=== PATIENT | male | born 1945 | race Caucasian/White ===

== ENCOUNTER 2016-10-15 10:25 | Inpatient (IN) | payer MEDICARE ==
[2016-10-15] MEDS ORDERED: SODIUM CHLORIDE 0.9% 1,000 ML IV STA (10:38)
--- NOTE | 2016-10-15 10:42 | ED ---
General Adult HPI - General Chief complaint: Syncope Stated complaint: Syncope Time Seen by Provider: 10/15/16 10:34 Source: patient, EMS, RN notes reviewed Mode of arrival: EMS Limitations: no limitations - History of Present Illness Initial comments: Patient is a pleasant 71-year-old male presenting to the emergency department following a syncopal episode. Episode occurred while sitting down at [employer]. Patient did feel somewhat nauseated prior to the episode. Patient was unresponsive for approximately 15 seconds. Patient is symptom-free at this time. Patient did have a syncopal episode several months ago with surgical procedure. No headache or confusion. No chest pain or dyspnea. No abdominal pain. - Related Data Home Medications Medication Instructions Recorded Confirmed Atorvastatin [Lipitor] 20 mg PO DAILY 10/23/15 10/15/16 Cholecalciferol [Vitamin D3] 1,000 unit PO DAILY 10/23/15 10/15/16 Finasteride [Proscar] 5 mg PO DAILY 10/23/15 10/15/16 Levothyroxine Sodium [Synthroid] 50 mcg PO DAILY 10/23/15 10/15/16 Tamsulosin [Flomax] 0.4 mg PO HS 10/23/15 10/15/16 Metoprolol Tartrate [Lopressor] 50 mg PO DAILY 10/15/16 10/15/16 Allergies Allergy/AdvReac Type Severity Reaction Status Date / Time No Known Allergies Allergy Verified 10/15/16 13:06 Review of Systems ROS Statement: Those systems with pertinent positive or pertinent negative responses have been documented in the HPI. ROS Other: All systems not noted in ROS Statement are negative. Constitutional: Denies: fever Eyes: Denies: eye pain ENT: Denies: ear pain Respiratory: Denies: cough Cardiovascular: Denies: chest pain Endocrine: Denies: fatigue Gastrointestinal: Reports: nausea (Resolved). Denies: abdominal pain Genitourinary: Denies: urgency Musculoskeletal: Denies: back pain Skin: Denies: rash Neurological: Denies: headache, weakness Past Medical History Past Medical History: Hypertension Additional Past Medical History / Comment(s): kidney stones+ History of Any Multi-Drug Resistant Organisms: None Reported Past Surgical History: Back Surgery, Hernia Repair Additional Past Surgical History / Comment(s): Calvin Past Anesthesia/Blood Transfusion Reactions: No Reported Reaction Past Psychological History: No Psychological Hx Reported Smoking Status: Former smoker Past Alcohol Use History: None Reported Past Drug Use History: None Reported - Past Family History Son(s) Additional Family Medical History / Comment(s): of cancer at age 31 General Exam Limitations: no limitations General appearance: alert, in no apparent distress Head exam: Present: atraumatic Eye exam: Present: normal appearance, PERRL, EOMI. Absent: nystagmus ENT exam: Present: normal oropharynx Neck exam: Present: normal inspection. Absent: tenderness Respiratory exam: Present: normal lung sounds bilaterally Cardiovascular Exam: Present: regular rate, normal rhythm GI/Abdominal exam: Present: soft. Absent: tenderness Extremities exam: Present: normal inspection Neurological exam: Present: alert, oriented X3, CN II-XII intact. Absent: motor sensory deficit Psychiatric exam: Present: normal affect, normal mood Skin exam: Present: normal color Course Vital Signs 10/15/16 10/15/16 10/15/16 10:28 11:17 12:07 Temperature 97.1 F L Pulse Rate 52 L 52 L 58 L Respiratory 18 18 18 Rate Blood Pressure 174/90 165/79 157/78 O2 Sat by Pulse 98 97 96 Oximetry 10/15/16 13:10 Temperature Pulse Rate 59 L Respiratory 18 Rate Blood Pressure 175/92 O2 Sat by Pulse 96 Oximetry EKG Findings - EKG Comments: EKG Findings:: Sinus bradycardia 49. ME 208. QRS 92. QT or 74. QTC 428. Left axis. Normal QRS. No acute ST change. Medical Decision Making - Medical Decision Making Patient reexamined and resting comfortably in bed. Patient and family updated on results and plan. Case was discussed in detail with Dr. Cavazos, who will admit for Dr. So - Lab Data Result diagrams: 10/15/16 10:50 10/15/16 10:50 Lab Results 10/15/16 10/15/16 10/15/16 Range/Units 10:50 10:50 10:50 WBC 9.3 (3.8-10.6) k/uL RBC 4.82 (4.30-5.90) m/uL Hgb 14.5 (13.0-17.5) gm/dL Hct 45.0 (39.0-53.0) % MCV 93.3 (80.0-100.0) fL MCH 30.1 (25.0-35.0) pg MCHC 32.3 (31.0-37.0) g/dL RDW 14.4 (11.5-15.5) % Plt Count 172 (150-450) k/uL Neutrophils % 60 % Lymphocytes % 29 % Monocytes % 6 % Eosinophils % 1 % Basophils % 1 % Neutrophils # 5.6 (1.3-7.7) k/uL Lymphocytes # 2.7 (1.0-4.8) k/uL Monocytes # 0.6 (0-1.0) k/uL Eosinophils # 0.1 (0-0.7) k/uL Basophils # 0.1 (0-0.2) k/uL PT (9.0-12.0) sec INR (<1.2) APTT (22.0-30.0) sec D-Dimer (<0.60) mg/L FEU Sodium 140 (137-145) mmol/L Potassium 4.0 (3.5-5.1) mmol/L Chloride 107 (98-107) mmol/L Carbon Dioxide 24 (22-30) mmol/L Anion Gap 9 mmol/L BUN 19 (9-20) mg/dL Creatinine 0.91 (0.66-1.25) mg/dL Est GFR (MDRD) Af Amer >60 (>60 ml/min/1.73 sqM) Est GFR (MDRD) Non-Af >60 (>60 ml/min/1.73 sqM) Glucose 106 H (74-99) mg/dL Calcium 8.8 (8.4-10.2) mg/dL Total Bilirubin 2.0 H (0.2-1.3) mg/dL AST 25 (17-59) U/L ALT 33 (21-72) U/L Alkaline Phosphatase 64 (38-126) U/L Total Creatine Kinase 101 (55-170) U/L CK-MB (CK-2) 1.6 (0.0-2.4) ng/mL CK-MB (CK-2) Rel Index 1.6 Troponin I <0.012 (0.000-0.034) ng/mL Total Protein 6.7 (6.3-8.2) g/dL Albumin 3.7 (3.5-5.0) g/dL Urine Color Urine Appearance (Clear) Urine pH (5.0-8.0) Ur Specific [place] (1.001-1.035) Urine Protein (Negative) Urine Glucose (UA) (Negative) Urine Ketones (Negative) Urine Blood (Negative) Urine Nitrite (Negative) Urine Bilirubin (Negative) Urine Urobilinogen (<2.0) mg/dL Ur Leukocyte Esterase (Negative) 10/15/16 10/15/16 Range/Units 10:50 12:04 WBC (3.8-10.6) k/uL RBC (4.30-5.90) m/uL Hgb (13.0-17.5) gm/dL Hct (39.0-53.0) % MCV (80.0-100.0) fL MCH (25.0-35.0) pg MCHC (31.0-37.0) g/dL RDW (11.5-15.5) % Plt Count (150-450) k/uL Neutrophils % % Lymphocytes % % Monocytes % % Eosinophils % % Basophils % % Neutrophils # (1.3-7.7) k/uL Lymphocytes # (1.0-4.8) k/uL Monocytes # (0-1.0) k/uL Eosinophils # (0-0.7) k/uL Basophils # (0-0.2) k/uL PT 10.8 (9.0-12.0) sec INR 1.1 (<1.2) APTT 21.5 L (22.0-30.0) sec D-Dimer 0.28 (<0.60) mg/L FEU Sodium (137-145) mmol/L Potassium (3.5-5.1) mmol/L Chloride (98-107) mmol/L Carbon Dioxide (22-30) mmol/L Anion Gap mmol/L BUN (9-20) mg/dL Creatinine (0.66-1.25) mg/dL Est GFR (MDRD) Af Amer (>60 ml/min/1.73 sqM) Est GFR (MDRD) Non-Af (>60 ml/min/1.73 sqM) Glucose (74-99) mg/dL Calcium (8.4-10.2) mg/dL Total Bilirubin (0.2-1.3) mg/dL AST (17-59) U/L ALT (21-72) U/L Alkaline Phosphatase (38-126) U/L Total Creatine Kinase (55-170) U/L CK-MB (CK-2) (0.0-2.4) ng/mL CK-MB (CK-2) Rel Index Troponin I (0.000-0.034) ng/mL Total Protein (6.3-8.2) g/dL Albumin (3.5-5.0) g/dL Urine Color Yellow Urine Appearance Clear (Clear) Urine pH 5.5 (5.0-8.0) Ur Specific [place] 1.014 (1.001-1.035) Urine Protein Negative (Negative) Urine Glucose (UA) Negative (Negative) Urine Ketones Negative (Negative) Urine Blood Negative (Negative) Urine Nitrite Negative (Negative) Urine Bilirubin Negative (Negative) Urine Urobilinogen <2.0 (<2.0) mg/dL Ur Leukocyte Esterase Negative (Negative) - Radiology Data Radiology results: report reviewed (Computed tomography scan of the brain of acute process), image reviewed (Chest x-ray shows no acute process) Disposition Clinical Impression: Syncope Disposition: ADMITTED IP TO THIS [facility] Referrals: Kristina So DO [Primary Care Provider] - 1-2 days Decision Time: 13:44
--- NOTE | 2016-10-15 11:04 | CT ---
EXAMINATION TYPE: CT brain wo con DATE OF EXAM: 10/15/2016 COMPARISON: NONE HISTORY: Passed out today, elevated BP CT DLP: 1059.2 mGycm Automated exposure control for dose reduction was used. FINDINGS: There is generalized degenerative change. No midline shift or mass effect. Nonspecific hypoattenuation within the white matter most typical remote microvascular ischemia. Avery rium intact. Changes of mild chronic sinusitis. Partially empty sella turcica suggested. IMPRESSION: NO ACUTE HEMORRHAGE OR MASS EFFECT. IF THERE IS CONCERN FOR ACUTE ISCHEMIA CORRELATE WITH MRI.
[2016-10-15 11:08] LABS: ALT 33 U/L (21-72); AST 25 U/L (17-59); Alkaline Phosphatase 64 U/L (38-126); Anion Gap 9 mmol/L; Blood Urea Nitrogen 19 mg/dL (9-20); Calcium 8.8 mg/dL (8.4-10.2); Carbon Dioxide 24 mmol/L (22-30); Chloride 107 mmol/L (98-107); Glucose 106 mg/dL (74-99); Non-African American GFR(MDRD) >60 (>60 ml/min/1.73 sqM); Sodium 140 mmol/L (137-145); Total Protein 6.7 g/dL (6.3-8.2)
[2016-10-15 11:09] LABS: Basophils # (A) 0.1 k/uL (0-0.2); Basophils % (A) 1 %; CH 31.1; CHCM 33.5; Eosinophils # (A) 0.1 k/uL (0-0.7); Eosinophils % (A) 1 %; HGB 14.5 gm/dL (13.0-17.5); Luc % (Auto) 3; Lymphocytes # (A) 2.7 k/uL (1.0-4.8); Lymphocytes % (A) 29 %; MCH 30.1 pg (25.0-35.0); MCHC 32.3 g/dL (31.0-37.0); MCV 93.3 fL (80.0-100.0); Mean Platelet Volume 9.4; Monocytes # (A) 0.6 k/uL (0-1.0); Monocytes % (A) 6 %; Neutrophils # (A) 5.6 k/uL (1.3-7.7); Neutrophils % (A) 60 %; RBC 4.82 m/uL (4.30-5.90); RDW 14.4 % (11.5-15.5); WBC 9.3 k/uL (3.8-10.6); WBC (Perox) 8.98
--- NOTE | 2016-10-15 11:11 | XR ---
EXAMINATION TYPE: XR chest 2V DATE OF EXAM: 10/15/2016 COMPARISON: NONE TECHNIQUE: PA and lateral views submitted. HISTORY: Syncope FINDINGS: The lungs are clear and there is no pneumothorax, pleural effusion, or focal pneumonia. Mild to bor derline cardiac enlargement. No overt failure. Mild hyperinflation. IMPRESSION: 1. No acute process.
[2016-10-15 11:20] LABS: Creatine Kinase 101 U/L (55-170)
[2016-10-15 11:25] LABS: INR 1.1 (<1.2); Partial Thromboplastin Time 21.5 sec (22.0-30.0); Prothrombin Time 10.8 sec (9.0-12.0)
[2016-10-15 11:32] LABS: Creatine Kinase MB 1.6 ng/mL (0.0-2.4); Troponin I <0.012 ng/mL (0.000-0.034)
[2016-10-15 12:24] LABS: Appearance,Urine Clear (Clear); Bilirubin,Urine Negative (Negative); Glucose,Urine (UA) Negative (Negative); Ketones,Urine Negative (Negative); Leukocyte Esterase,Urine Negative (Negative); Nitrite,Urine Negative (Negative); PH, Urine 5.5 (5.0-8.0); Protein,Urine Negative (Negative); Specific Gravity,Urine 1.014 (1.001-1.035); UA Billing (MACRO vs. MICRO) CHEM; Urobilinogen,Urine <2.0 mg/dL (<2.0)
[2016-10-15] MEDS ORDERED: NALOXONE 0.4 MG/ML 1 ML VIAL IV PRN (13:45)
[2016-10-15 16:33] VITALS: BMI 24.8
[2016-10-15] MEDS ORDERED: METOPROLOL TARTRATE 50 MG TAB PO SCH (21:45)
[2016-10-15] MEDS: ATORVASTATIN 20 MG TAB PO SCH (22:27)
[2016-10-16] MEDS: LEVOTHYROXINE 50 MCG TAB PO SCH (06:24)
[2016-10-16 07:06] LABS: Anion Gap 8 mmol/L; Blood Urea Nitrogen 13 mg/dL (9-20); CH 29.8; CHCM 32.6; Calcium 8.8 mg/dL (8.4-10.2); Carbon Dioxide 24 mmol/L (22-30); Chloride 110 mmol/L (98-107); Glucose 88 mg/dL (74-99); HCT 44.4 % (39.0-53.0); HDW 2.38; HGB 14.6 gm/dL (13.0-17.5); MCH 30.3 pg (25.0-35.0); MCHC 32.9 g/dL (31.0-37.0); Mean Platelet Volume 8.3; Non-African American GFR(MDRD) >60 (>60 ml/min/1.73 sqM); RBC 4.82 m/uL (4.30-5.90); RDW 13.4 % (11.5-15.5); Sodium 142 mmol/L (137-145); WBC 5.6 k/uL (3.8-10.6)
--- NOTE | 2016-10-16 08:46 | P.HPIM ---
History of Present Illness H&P Date: 10/16/16 Chief Complaint: Syncope Patient is a 71-year-old male patient of Dr. Kristina So who presented to [facility] emergency room after having an episode of syncope. Patient states that he was sitting down at [employer] when he started feeling nauseated he wanted to get up but he lost consciousness, he leaned to the side where his was sitting and never fell to the floor. Patient's states that while he was out he had some shaking, patient was unconscious for about 15 seconds, he was resuscitated EMS were called and patient was brought in to [facility] emergency room. states that when EMS checked his blood pressure at [facility] H was very low, however subsequently it was elevated in the emergency room, on arrival patient heart rate was 73 however subsequently it was down in the 40, second EKG was done and it showed a heart rate of 49. Patient was admitted to telemetry floor cardiology consultation was requested. Also due to the shaking history, EEG was ordered and neurology on-call consultation was requested. Patient states that several months ago he was scheduled to have surgery on his nose due to skin cancer however prior to having surgery he had a syncopal episode he was transferred to [facility] and had several tests that did not reveal any significant abnormality he states that he was told he was dehydrated at that time. Past Medical History Past Medical History: Hypertension Additional Past Medical History / Comment(s): Diverticulitis skin canncer on nose, kidney stones+ History of Any Multi-Drug Resistant Organisms: None Reported Past Surgical History: Back Surgery, Hernia Repair Additional Past Surgical History / Comment(s): Calvin Past Anesthesia/Blood Transfusion Reactions: No Reported Reaction Past Psychological History: No Psychological Hx Reported Smoking Status: Former smoker Past Alcohol Use History: None Reported Past Drug Use History: None Reported - Past Family History Son(s) Additional Family Medical History / Comment(s): of cancer at age 31 Medications and Allergies Home Medications Medication Instructions Recorded Confirmed Type Atorvastatin [Lipitor] 20 mg PO DAILY 10/23/15 10/15/16 History Cholecalciferol [Vitamin D3] 1,000 unit PO DAILY 10/23/15 10/15/16 History Finasteride [Proscar] 5 mg PO DAILY 10/23/15 10/15/16 History Levothyroxine Sodium [Synthroid] 50 mcg PO DAILY 10/23/15 10/15/16 History Tamsulosin [Flomax] 0.4 mg PO HS 10/23/15 10/15/16 History Metoprolol Tartrate [Lopressor] 50 mg PO DAILY 10/15/16 10/15/16 History Allergies Allergy/AdvReac Type Severity Reaction Status Date / Time No Known Allergies Allergy Verified 10/15/16 13:06 Physical Exam Vitals: Vital Signs Temp Pulse Pulse Resp BP BP Pulse Ox 10/16/16 04:00 54 L 16 143/85 97 10/16/16 00:00 97.9 F 90 16 140/90 96 10/15/16 20:00 99 F 99 16 143/89 99 10/15/16 16:00 98.4 F 87 16 156/94 96 10/15/16 15:56 97.9 F 95 18 160/87 99 10/15/16 15:18 82 18 157/96 98 10/15/16 14:50 79 18 172/84 98 10/15/16 13:10 59 L 18 175/92 96 10/15/16 12:07 58 L 18 157/78 96 10/15/16 11:17 52 L 18 165/79 97 10/15/16 10:28 97.1 F L 52 L 18 174/90 98 Intake and Output 10/15/16 10/16/16 10/16/16 22:59 06:59 14:59 Intake Total 118 100 Output Total 0 Balance 118 100 Intake: IV 100 Sodium Chloride 0.9% 1, 100 000 ml @ 100 mls/hr IV . Q10H STA Rx#:[id number] Oral 118 Output: Urine 0 Other: # Voids 2 Weight 78.47 kg 79 kg In general patient is alert and oriented 3 in no apparent distress HEENT head normocephalic and atraumatic Neck is supple no JVD no goiter no lymphadenopathy Chest exam is clear to auscultation no crackles no wheezing Cardiac exam reveals regular heart sounds S1 and S2 no gallops no murmurs Abdomen is soft nontender no organomegaly with normal bowel sounds Extremity exam reveals no edema no cyanosis or clubbing Results CBC & Chem 7: 10/16/16 06:31 10/16/16 06:31 Labs: Abnormal Lab Results - Last 24 Hours (Table) 10/15/16 10/15/16 10/16/16 Range/Units 10:50 10:50 06:31 APTT 21.5 L (22.0-30.0) sec Chloride 110 H (98-107) mmol/L Glucose 106 H (74-99) mg/dL Total Bilirubin 2.0 H (0.2-1.3) mg/dL Thrombosis Risk Factor Assmnt - Choose All That Apply Each Risk Factor Represents 2 Points: Age 61-74 years Thrombosis Risk Factor Assessment Total Risk Factor Score: 2 Thrombosis Risk Factor Assessment Level: Low Risk Assessment and Plan Plan: #1 syncopal episode, at this time will check echocardiogram and carotid Doppler cardiology consultation was requested #2 episodes of bradycardia Will monitor closely, patient is maintained on metoprolol 50 mg by mouth daily which was held this morning #3 history of shaking while having the syncopal episode per will obtain EEG and consult neurology #4 underlying history of hypertension #5 underlying history of hyperlipidemia maintained on Lipitor #6 underlying history of hypothyroidism maintained on Synthroid 50 g daily Will check TSH #7 underlying history of benign prostatic hypertrophy maintained on Proscar and Flomax Medication and labs were reviewed will check echocardiogram carotid Doppler continue monitoring with telemetry check EEG Will review case later will discuss was neurology and cardiology consultations.
[2016-10-16] MEDS: ATORVASTATIN 20 MG TAB PO SCH (09:10)
[2016-10-16] MEDS: CHOLECALCIFEROL 1,000 UNIT TAB PO SCH (09:10)
[2016-10-16] MEDS: FINASTERIDE 5 MG TAB PO SCH (09:10)
--- NOTE | 2016-10-16 09:24 | P.CRDCN ---
History of Present Illness Consult date: 10/16/16 Requesting physician: Karen Cavazos Consult reason: sycope Chief complaint: Syncope History of present illness: This is a pleasant 71-year-old gentleman with history of hypertension , hyperlipidemia, hypothyroidism, enlarged prostate, who presented to the hospital following a syncopal episode. According to the patient, he was in [employer] when the episode occurred. He was in a sitting down position, he states that he became warm and clammy and had some mild nausea. He was going to stand up to go outside and get some fresh air, but just at that time the patient passed out. According to the he had some mild shaking at the time. Upon wakening he was alert and oriented 3, he did not lose bowel or bladder function. According to the patient he had a similar episode while undergoing surgery for skin cancer removal on his nose. He had similar symptoms at that time. He also states when he was in his 20s he was getting a haircut and he had a similar episode. Patient's blood pressure at home has not been well controlled, approximately 6 months ago he was initiated on metoprolol tartrate, he also takes Flomax for his prostate. Blood pressure on arrival here 174/90, heart rate in the 50s, 98% on room air. EKG showed normal sinus rhythm with PACs, no acute changes noted. CAT scan of the brain did not reveal any acute hemorrhage or mass effect. Chest x-ray did not reveal any acute process. CBC normal. D-dimer 0.2. Potassium 4.0, BUN 13, creatinine 0.8. Troponins have been negative 4. Past Medical History Past Medical History: Hypertension Additional Past Medical History / Comment(s): Diverticulitis skin canncer on nose, kidney stones+ History of Any Multi-Drug Resistant Organisms: None Reported Past Surgical History: Back Surgery, Hernia Repair Additional Past Surgical History / Comment(s): Calvin Past Anesthesia/Blood Transfusion Reactions: No Reported Reaction Past Psychological History: No Psychological Hx Reported Smoking Status: Former smoker Past Alcohol Use History: None Reported Past Drug Use History: None Reported - Past Family History Son(s) Additional Family Medical History / Comment(s): of cancer at age 31 Medications and Allergies Home Medications Medication Instructions Recorded Confirmed Type Atorvastatin [Lipitor] 20 mg PO DAILY 10/23/15 10/15/16 History Cholecalciferol [Vitamin D3] 1,000 unit PO DAILY 10/23/15 10/15/16 History Finasteride [Proscar] 5 mg PO DAILY 10/23/15 10/15/16 History Levothyroxine Sodium [Synthroid] 50 mcg PO DAILY 10/23/15 10/15/16 History Tamsulosin [Flomax] 0.4 mg PO HS 10/23/15 10/15/16 History Metoprolol Tartrate [Lopressor] 50 mg PO DAILY 10/15/16 10/15/16 History Allergies Allergy/AdvReac Type Severity Reaction Status Date / Time No Known Allergies Allergy Verified 10/15/16 13:06 Physical Exam Vitals: Vital Signs Temp Pulse Pulse Resp BP BP Pulse Ox 10/16/16 04:00 54 L 16 143/85 97 10/16/16 00:00 97.9 F 90 16 140/90 96 10/15/16 20:00 99 F 99 16 143/89 99 10/15/16 16:00 98.4 F 87 16 156/94 96 10/15/16 15:56 97.9 F 95 18 160/87 99 10/15/16 15:18 82 18 157/96 98 10/15/16 14:50 79 18 172/84 98 10/15/16 13:10 59 L 18 175/92 96 10/15/16 12:07 58 L 18 157/78 96 10/15/16 11:17 52 L 18 165/79 97 10/15/16 10:28 97.1 F L 52 L 18 174/90 98 Intake and Output 10/15/16 10/16/16 10/16/16 22:59 06:59 14:59 Intake Total 118 100 Output Total 0 Balance 118 100 Intake: IV 100 Sodium Chloride 0.9% 1, 100 000 ml @ 100 mls/hr IV . Q10H STA Rx#:[id number] Oral 118 Output: Urine 0 Other: # Voids 2 Weight 78.47 kg 79 kg PHYSICAL EXAMINATION: HEENT: Head is atraumatic, normocephalic. Pupils equal, round. Neck is supple. There is no elevated jugular venous pressure. HEART EXAMINATION: Heart S1, S2 normal. No murmur or gallop heard. CHEST EXAMINATION: Lungs are clear to auscultation and precussion. No chest wall tenderness is noted on palpation or with deep breathing. ABDOMEN: Soft, nontender. Bowel sounds are heard. No organomegaly noted. EXTREMITIES: 2+ peripheral pulses with no evidence of peripheral edema and no calf tenderness noted. NEUROLOGIC patient is awake, alert and oriented -3. . Results 10/16/16 06:31 10/16/16 06:31 Cardiac Enzymes 10/15/16 10/15/16 10/15/16 Range/Units 10:50 10:50 16:56 AST 25 (17-59) U/L CK-MB (CK-2) 1.6 (0.0-2.4) ng/mL Troponin I <0.012 <0.012 (0.000-0.034) ng/mL 10/15/16 10/16/16 Range/Units 21:50 06:31 AST (17-59) U/L CK-MB (CK-2) (0.0-2.4) ng/mL Troponin I <0.012 <0.012 (0.000-0.034) ng/mL Coagulation 10/15/16 Range/Units 10:50 PT 10.8 (9.0-12.0) sec APTT 21.5 L (22.0-30.0) sec CBC 10/15/16 10/16/16 Range/Units 10:50 06:31 WBC 9.3 5.6 (3.8-10.6) k/uL RBC 4.82 4.82 (4.30-5.90) m/uL Hgb 14.5 14.6 (13.0-17.5) gm/dL Hct 45.0 44.4 (39.0-53.0) % Plt Count 172 181 (150-450) k/uL Comprehensive Metabolic Panel 10/15/16 10/16/16 Range/Units 10:50 06:31 Sodium 140 142 (137-145) mmol/L Potassium 4.0 4.0 (3.5-5.1) mmol/L Chloride 107 110 H (98-107) mmol/L Carbon Dioxide 24 24 (22-30) mmol/L BUN 19 13 (9-20) mg/dL Creatinine 0.91 0.84 (0.66-1.25) mg/dL Glucose 106 H 88 (74-99) mg/dL Calcium 8.8 8.8 (8.4-10.2) mg/dL AST 25 (17-59) U/L ALT 33 (21-72) U/L Alkaline Phosphatase 64 (38-126) U/L Total Protein 6.7 (6.3-8.2) g/dL Albumin 3.7 (3.5-5.0) g/dL Current Medications Generic Name Dose Route Start Last Admin Trade Name Freq PRN Reason Stop Dose Admin Atorvastatin Calcium 20 mg 10/15/16 21:45 10/15/16 22:27 Lipitor PO Not Given DAILY RUDDY Cholecalciferol 1,000 unit 10/16/16 09:00 Vitamin D3 PO DAILY RUDDY Finasteride 5 mg 10/16/16 09:00 Proscar PO DAILY RUDDY Levothyroxine Sodium 50 mcg 10/16/16 06:30 10/16/16 06:24 Synthroid PO 50 mcg 0630 RUDDY Administration Metoprolol Tartrate 50 mg 10/15/16 21:45 10/15/16 22:27 Lopressor PO Not Given DAILY RUDDY Naloxone HCl 0.2 mg 10/15/16 13:45 Narcan IV Q2M PRN Opioid Reversal Tamsulosin HCl 0.4 mg 10/16/16 21:00 Flomax PO HS RUDDY Intake and Output 10/15/16 10/16/16 10/16/16 22:59 06:59 14:59 Intake Total 118 100 Output Total 0 Balance 118 100 Intake: IV 100 Sodium Chloride 0.9% 1, 100 000 ml @ 100 mls/hr IV . Q10H STA Rx#:[id number] Oral 118 Output: Urine 0 Other: # Voids 2 Weight 78.47 kg 79 kg 10/16/16 06:31 10/16/16 06:31 EKG Interpretations (text) EKG shows a normal sinus rhythm with occasional PAC and PVC no acute changes noted. Assessment and Plan Plan: Assessment and plan #1 syncope appears to be vasovagal in nature. No orthostatics noted. EKG shows normal sinus rhythm with occasional PAC and PVC no tachycardia or bradycardia arrhythmias noted. #2 accelerated hypertension #3 history of hypertension #4 hyperlipidemia # 5 hypothyroidism #6 enlarged prostate Plan We will obtain an echocardiogram with Doppler study. We will also discontinue the metoprolol tartrate and start the patient on Norvasc along with an angiotensin francisca. Optimize blood pressure control. Further recommendations to follow. DNP note has been reviewed, I agree with a documented findings and plan of care. Patient was seen and examined.
[2016-10-16] MEDS: LOSARTAN 25 MG TAB PO SCH (10:37)
[2016-10-16] MEDS: amLODIPine 5 MG TAB PO SCH (10:37)
--- NOTE | 2016-10-16 13:05 | P.CRDCN ---
History of Present Illness Consult reason: sycope History of present illness: Episode of syncope while sitting in [facility] Several episodes in the past but mostly was standing or consistent with situational syncope Mild sinus bradycardia, Dyslipidemia Enlarged prostate Elevated blood pressure history of hypertension Suggest Discontinue beta blockers and start amlodipine 10 mg by mouth daily Watch for bradycardia PC full dictation by Dr. culver Past Medical History Past Medical History: Hypertension Additional Past Medical History / Comment(s): Diverticulitis skin canncer on nose, kidney stones+ History of Any Multi-Drug Resistant Organisms: None Reported Past Surgical History: Back Surgery, Hernia Repair Additional Past Surgical History / Comment(s): Calvin Past Anesthesia/Blood Transfusion Reactions: No Reported Reaction Past Psychological History: No Psychological Hx Reported Smoking Status: Former smoker Past Alcohol Use History: None Reported Past Drug Use History: None Reported - Past Family History Son(s) Additional Family Medical History / Comment(s): of cancer at age 31 Medications and Allergies Home Medications Medication Instructions Recorded Confirmed Type Atorvastatin [Lipitor] 20 mg PO DAILY 10/23/15 10/15/16 History Cholecalciferol [Vitamin D3] 1,000 unit PO DAILY 10/23/15 10/15/16 History Finasteride [Proscar] 5 mg PO DAILY 10/23/15 10/15/16 History Levothyroxine Sodium [Synthroid] 50 mcg PO DAILY 10/23/15 10/15/16 History Tamsulosin [Flomax] 0.4 mg PO HS 10/23/15 10/15/16 History Metoprolol Tartrate [Lopressor] 50 mg PO DAILY 10/15/16 10/15/16 History Allergies Allergy/AdvReac Type Severity Reaction Status Date / Time No Known Allergies Allergy Verified 10/15/16 13:06 Physical Exam Vitals: Vital Signs Temp Pulse Pulse Pulse Pulse Pulse Resp 10/16/16 12:00 65 12 10/16/16 09:06 97.8 F 78 108 H 70 16 10/16/16 09:00 16 10/16/16 04:00 54 L 16 10/16/16 00:00 97.9 F 90 16 10/15/16 20:00 99 F 99 16 10/15/16 16:00 98.4 F 87 16 10/15/16 15:56 97.9 F 95 18 10/15/16 15:18 82 18 10/15/16 14:50 79 18 10/15/16 13:10 59 L 18 BP BP BP BP BP Pulse Ox 10/16/16 12:00 158/83 98 10/16/16 09:06 156/92 157/114 154/89 97 10/16/16 09:00 10/16/16 04:00 143/85 97 10/16/16 00:00 140/90 96 10/15/16 20:00 143/89 99 10/15/16 16:00 156/94 96 10/15/16 15:56 160/87 99 10/15/16 15:18 157/96 98 10/15/16 14:50 172/84 98 10/15/16 13:10 175/92 96 Intake and Output 10/15/16 10/16/16 10/16/16 22:59 06:59 14:59 Intake Total 118 100 118 Output Total 0 Balance 118 100 118 Intake: IV 100 Sodium Chloride 0.9% 1, 100 000 ml @ 100 mls/hr IV . Q10H STA Rx#:[id number] Oral 118 118 Output: Urine 0 Other: # Voids 2 1 Weight 78.47 kg 79 kg Results 10/16/16 06:31 10/16/16 06:31 Cardiac Enzymes 10/15/16 10/15/16 10/16/16 Range/Units 16:56 21:50 06:31 Troponin I <0.012 <0.012 <0.012 (0.000-0.034) ng/mL CBC 10/16/16 Range/Units 06:31 WBC 5.6 (3.8-10.6) k/uL RBC 4.82 (4.30-5.90) m/uL Hgb 14.6 (13.0-17.5) gm/dL Hct 44.4 (39.0-53.0) % Plt Count 181 (150-450) k/uL Comprehensive Metabolic Panel 10/16/16 Range/Units 06:31 Sodium 142 (137-145) mmol/L Potassium 4.0 (3.5-5.1) mmol/L Chloride 110 H (98-107) mmol/L Carbon Dioxide 24 (22-30) mmol/L BUN 13 (9-20) mg/dL Creatinine 0.84 (0.66-1.25) mg/dL Glucose 88 (74-99) mg/dL Calcium 8.8 (8.4-10.2) mg/dL Current Medications Generic Name Dose Route Start Last Admin Trade Name Melania PRN Reason Stop Dose Admin Amlodipine Besylate 5 mg 10/16/16 09:30 10/16/16 10:37 Norvasc PO 5 mg DAILY RUDDY Administration Atorvastatin Calcium 20 mg 10/15/16 21:45 10/16/16 09:10 Lipitor PO 20 mg DAILY RUDDY Administration Cholecalciferol 1,000 unit 10/16/16 09:00 10/16/16 09:10 Vitamin D3 PO 1,000 unit DAILY RUDDY Administration Finasteride 5 mg 10/16/16 09:00 10/16/16 09:10 Proscar PO 5 mg DAILY RUDDY Administration Levothyroxine Sodium 50 mcg 10/16/16 06:30 10/16/16 06:24 Synthroid PO 50 mcg 0630 RUDDY Administration Losartan Potassium 25 mg 10/16/16 09:30 10/16/16 10:37 Cozaar PO 25 mg DAILY RUDDY Administration Naloxone HCl 0.2 mg 10/15/16 13:45 Narcan IV Q2M PRN Opioid Reversal Tamsulosin HCl 0.4 mg 10/16/16 21:00 Flomax PO HS RUDDY Intake and Output 10/15/16 10/16/16 10/16/16 22:59 06:59 14:59 Intake Total 118 100 118 Output Total 0 Balance 118 100 118 Intake: IV 100 Sodium Chloride 0.9% 1, 100 000 ml @ 100 mls/hr IV . Q10H STA Rx#:[id number] Oral 118 118 Output: Urine 0 Other: # Voids 2 1 Weight 78.47 kg 79 kg 10/16/16 06:31 10/16/16 06:31
--- NOTE | 2016-10-16 14:59 | US ---
EXAMINATION TYPE: US carotid duplex BILAT DATE OF EXAM: 10/16/2016 COMPARISON: NONE CLINICAL HISTORY: syncope. EXAM MEASUREMENTS: RIGHT: Peak Systolic Velocity (PSV) cm/sec ----- Right CCA: 55.7 ----- Right ICA: 62.5 ----- Right ECA: 48.9 ICA/CCA ratio: 1.1 RIGHT: End Diastole cm/sec ----- Right CCA: 19.4 ----- Right ICA: 25.9 ----- Right ECA: 6.1 LEFT: Peak Systolic Velocity (PSV) cm/sec ----- Left CCA: 66.4 ----- Left ICA: 60.2 ----- Left ECA: 39.0 ICA/CCA ratio: 0.9 LEFT: End Diastole cm/sec ----- Left CCA: 14.7 ----- Left ICA: 21.5 ----- Left ECA: 18.7 VERTEBRALS (direction of flow): Right Vertebral: Antegrade Left Vertebral: Antegrade Tortuous ICA's bilaterally, no significant velocity elevations. Minimal saravia scale plaquing is seen within the right internal carotid artery. IMPRESSION: No hemodynamically significant stenosis within either carotid system. Minimal saravia scale plaquing within the right internal carotid artery.
--- NOTE | 2016-10-16 15:13 | ECHOF ---
Referral Reason:syncope MEASUREMENTS -------- HEIGHT: 177.8 cm WEIGHT: 78.9 kg BP: 156/92 RVIDd: 3.9 cm (< 3.3) IVSd: 1.3 cm (0.6 - 1.1) LVIDd: 4.4 cm (3.9 - 5.3) LVPWd: 1.3 cm (0.6 - 1.1) EDV(Teich): 88 ml IVSs: 1.7 cm LVIDs: 2.0 cm LVPWs: 1.6 cm %IVS Thck: 39 % ESV(Teich): 13 ml EF(Teich): 85 % %FS: 53 % SV(Teich): 74 ml LALs A4C: 6.3 cm LAAs A4C: 19.2 cm LAESV A-L A4C: 50 ml LAESV MOD A4C: 51 ml LALs A2C: 5.9 cm LAAs A2C: 22.8 cm LAESV A-L A2C: 74 ml LAESV MOD A2C: 67 ml LAESV(A-L): 62 ml LAESV Index (A-L): 31.70 ml/m Ao Diam: 3.5 cm (2.0 - 3.7) AV Cusp: 2.0 cm (1.5 - 2.6) LA Diam: 3.9 cm (2.7 - 3.8) MV EXCURSION: 10.412 mm (> 18.000) MV EF SLOPE: 63 mm/s (70 - 150) EPSS: 1.4 cm MV E Jung: 0.91 m/s MV DecT: 340 ms MV Dec [place]: 2.7 m/s MV A Jung: 1.21 m/s MV E/A Ratio: 0.75 MV PHT: 99 ms E/E': 20.83 E': 0.04 m/s AV Vmax: 1.61 m/s AV maxP.39 mmHg AR Vmax: 3.96 m/s AR maxP.87 mmHg AR PHT: 875 ms AR Dec Time: 3018 ms AR Dec [place]: 1.4 m/s TR Vmax: 2.47 m/s TR maxP.47 mmHg RAP: 5.00 mmHg RVSP: 29.47 mmHg FINDINGS -------- Sinus rhythm with extra systolic beats. This was a technically good study. There is mild concentric left ventricular hypertrophy. Overall left ventricular systolic function is normal with, an EF between 60 - 65 %. The right ventricle is mildly enlarged. LA is midly dilated 29-33ml/m2. RA appears enlarged. Aortic valve is trileaflet and is mildly thickened. There is qkga-eu-jxouconl aortic regurgitation. The aortic pressure half-time by doppler is 875ms. There is no evidence of aortic stenosis. The mitral valve leaflets are mildly thickened. There is trace to mild mitral regurgitation. Trace tricuspid regurgitation present. There is no evidence of pulmonary hypertension. The right ventricular systolic pressure, as measured by Doppler, is 29.47mmHg. The pulmonic valve was not well visualized. The aortic root is mildy dilated. Normal inferior vena cava with normal inspiratory collapse consistent with estimated right atrial pressure of 5 mmHg. The pericardium is normal. There is no pericardial effusion. CONCLUSIONS -------- 1. Sinus rhythm with extra systolic beats. 2. The aortic pressure half-time by doppler is 875ms. 3. The mitral valve leaflets are mildly thickened. 4. There is trace to mild mitral regurgitation. 5. Trace tricuspid regurgitation present. 6. There is no evidence of pulmonary hypertension. 7. The right ventricular systolic pressure, as measured by Doppler, is 29.47mmHg. 8. The pulmonic valve was not well visualized. 9. The aortic root is mildy dilated to 4.1 cm. 10. There is no pericardial effusion. 11. This was a technically good study. 12. There is mild concentric left ventricular hypertrophy. 13. Overall left ventricular systolic function is normal with, an EF between 60 - 65 %. 14. The right ventricle is mildly enlarged. 15. LA is midly dilated 29-33ml/m2. 16. RA appears enlarged. 17. Aortic valve is trileaflet and is mildly thickened. 18. There is sucr-af-jlvmeooz aortic regurgitation. RETAIL MANAGEMENT TRAINEE: Juan Pablo Priest RDCS
[2016-10-16] MEDS ORDERED: TAMSULOSIN 0.4 MG CAP.ER.24H PO SCH (21:00)
[2016-10-17 06:00] LABS: Basophils % (A) 1 %; CH 31.1; CHCM 33.3; Eosinophils # (A) 0.1 k/uL (0-0.7); Eosinophils % (A) 1 %; HDW 2.36; HGB 14.6 gm/dL (13.0-17.5); Luc # (Auto) 0.14; Luc % (Auto) 2; Lymphocytes # (A) 1.5 k/uL (1.0-4.8); Lymphocytes % (A) 24 %; MCH 30.6 pg (25.0-35.0); MCHC 32.5 g/dL (31.0-37.0); Mean Platelet Volume 8.8; Monocytes # (A) 0.5 k/uL (0-1.0); Monocytes % (A) 8 %; Neutrophils % (A) 64 %; RBC 4.78 m/uL (4.30-5.90); RDW 14.3 % (11.5-15.5); WBC 6.3 k/uL (3.8-10.6); WBC (Perox) 6.54
[2016-10-17 06:19] LABS: ALT 31 U/L (21-72); AST 22 U/L (17-59); Alkaline Phosphatase 71 U/L (38-126); Anion Gap 9 mmol/L; Blood Urea Nitrogen 17 mg/dL (9-20); Calcium 9.3 mg/dL (8.4-10.2); Carbon Dioxide 25 mmol/L (22-30); Chloride 105 mmol/L (98-107); Glucose 93 mg/dL (74-99); Non-African American GFR(MDRD) >60 (>60 ml/min/1.73 sqM); Potassium 3.9 mmol/L (3.5-5.1); Sodium 139 mmol/L (137-145); Total Bilirubin 1.5 mg/dL (0.2-1.3); Total Protein 6.7 g/dL (6.3-8.2)
[2016-10-17] MEDS: LEVOTHYROXINE 50 MCG TAB PO SCH (06:47)
[2016-10-17 08:56] VITALS: RESP 12; TEMP 97
[2016-10-17] MEDS: FINASTERIDE 5 MG TAB PO SCH (09:01)
[2016-10-17] MEDS: CHOLECALCIFEROL 1,000 UNIT TAB PO SCH (09:01)
[2016-10-17] MEDS: amLODIPine 5 MG TAB PO SCH (09:01)
[2016-10-17] MEDS: LOSARTAN 25 MG TAB PO SCH (09:01)
[2016-10-17] MEDS: ATORVASTATIN 20 MG TAB PO SCH (09:01)
--- NOTE | 2016-10-17 09:22 | P.PN ---
Subjective Principal diagnosis: Neurocardiogenic syncope, hypertension, sinus bradycardia, mild prolonged NH interval Patient is doing well. His blood pressure is 132/92 mmHg 142/92 mmHg on amlodipine. Pulse rate in the 50s.-90s. Sinus no chest discomfort no dizziness lightheadedness ablating the hallways On examination his heart sounds are normal no murmurs no gallops Heart sounds are normal Breath sounds are clear no rhonchi no crackles equal breath sounds bilaterally Abdomen soft nontender Extremities are warm no edema Impression History of recurrent syncope consistent with neurocardiogenic syncope History of syncope while sitting in congregational Mild sinus bradycardia on beta blockers with a mildly prolonged NH interval History of hypertension with mild left frontal hypertrophy without heart failure ejection fraction 60% Beta blockers discontinued yesterday and amlodipine 10 mg by mouth daily initiated Dyslipidemia Right ventricle mildly enlarged right atrium mildly enlarged Acpg-[id number]-[id number] aortic regurgitation but with a pressure half time of 875 ms Plan Patient may go home from a cardiac standpoint and I will see him again in about 2 weeks or so Outpatient 20 for a Holter monitor Patient instructed to drink fluids ad akiko. and avoid claustrophobic places it if he has yet another episode of syncope while sitting he will contact me immediately Objective - Vital Signs Vital signs: Vital Signs Temp 97 F L 10/17/16 08:20 Pulse 70 10/17/16 08:20 Resp 12 10/17/16 08:20 BP 132/92 10/17/16 08:20 Pulse Ox 96 10/17/16 08:20 Intake & Output 10/16/16 10/17/16 10/17/16 18:59 06:59 18:59 Intake Total 595 240 Balance 595 240 Weight 77.2 kg Intake: Oral 595 240 Other: # Voids 2 1 - Labs CBC & Chem 7: 10/17/16 05:33 10/17/16 05:33 Labs: Abnormal Lab Results - Last 24 Hours (Table) 10/17/16 Range/Units 05:33 Total Bilirubin 1.5 H (0.2-1.3) mg/dL
--- NOTE | 2016-10-17 11:19 | CONS ---
DATE OF CONSULTATION: 10/16/2016 CHIEF COMPLAINT: Syncope. HISTORY OF PRESENT ILLNESS: Mr. Ramachandran is a pleasant 71-year-old male who is being evaluated by the Neurology Service per the request of Dr. Cavazos for a syncopal spell. The patient was at [facility] and developed a sudden onset of dizziness which he describes as a light-headed sensation. He tried to get up and then he passed. According to the admission note, his noticed mild jerking when he was unconscious. The patient regained consciousness within 15 seconds and there was no confusion. The patient remembers that he was quite alert and oriented when he retained consciousness at the [employer]. EMS was called and the patient was found to have low blood pressures although this was not documented. He was brought in to [facility] where he was found to be hypertensive but he did have bradycardia with a pulse of 52. The patient does have history of hypertension and is on a Beta francisca at home. No sphincter incontinence occurred. Cardiology did evaluate the patient and they discontinued his beta francisca. He is currently on telemetry. He has not had any further presyncopal or syncopal episodes since his admission. PAST MEDICAL HISTORY: Hypertension, skin cancer, nephrolithiasis, history of lumbar spine surgery and hernia repair. SOCIAL HISTORY: He denies any tobacco, alcohol or drug use. FAMILY HISTORY: Positive for cancer. HOME MEDICATIONS: Reviewed in the chart. ALLERGIES: No known drug allergies. REVIEW OF SYSTEMS: As mentioned above and otherwise negative except for occasional left upper extremity numbness and tingling that has been occurring for several months. PHYSICAL EXAM: Vital signs show a temperature of 97.5, pulse 60, respirations 16, blood pressure 126/67. GENERAL APPEARANCE: The patient is a well-developed elderly male who appears to be in no acute distress. HEENT: Normocephalic, atraumatic. No facial asymmetry is seen. Neck is supple with no masses felt. CARDIOVASCULAR: Regular rate and rhythm. ABDOMEN: Nontender, nondistended. EXTREMITIES: Showed no edema or clubbing. NEUROLOGICAL EXAM: The patient is alert, aware and oriented x3. Speech and language are normal. No lateralizing weakness is seen. No facial asymmetry is noticed on cranial nerve testing. Sensory exam was normal to light touch in all 4 extremities. No tremors or seizure-like activity is seen. IMPRESSION: 1. Syncopal spell. 2. Bradycardia. 3. Recurrent left upper extremity numbness and tingling. 4. History of hypertension. RECOMMENDATION: The patient did have a true syncopal episode. An EEG has been ordered, although this is not felt to be epileptic in etiology. The patient did have hypotension initially but then developed bradycardiac with hypertension. Cardiology has been consulted and his beta francisca has been discontinued. Continue telemetry and blood pressure monitoring. I did review his CT scan of the brain which was normal and his laboratory workup showed no significant abnormality except for slightly elevated bilirubin. I do recommend further workup for this. As for his recurrent left upper extremity numbness, further outpatient neurophysiological workup will be needed. I will continue to follow with you. Further recommendations to follow. Thank you for allowing me to participate in the care of your patient. If you have any questions, please feel free to contact me. SHANNA
[2016-10-17 11:51] VITALS: PULSE 90
--- NOTE | 2016-10-17 17:45 | P.DS ---
Providers Date of admission: 10/15/16 13:45 Expected date of discharge: 10/17/16 Attending physician: Karen Cavazos Consults: 10/15/16 13:46 Consult Physician Urgent Consulting Provider: Jose Silva Consult Reason/Comments: syncope Do you want consulting provider notified?: Yes 10/16/16 08:38 Consult Physician Routine Consulting Provider: Vinay Bynum Consult Reason/Comments: Syncope Do you want consulting provider notified?: Yes Primary care physician: Kristina So [facility] Course: Diagnoses on discharge: #1 syncopal episode, at this time will check echocardiogram and carotid Doppler cardiology consultation was requested #2 episodes of bradycardia Will monitor closely, patient is maintained on metoprolol 50 mg by mouth daily which was discontinued patient was started on Norvasc 5 mg daily and Cozaar 25 mg daily. #3 history of shaking while having the syncopal episode per will obtain EEG and consult neurology #4 underlying history of hypertension #5 underlying history of hyperlipidemia maintained on Lipitor #6 underlying history of hypothyroidism maintained on Synthroid 50 g daily Will check TSH #7 underlying history of benign prostatic hypertrophy maintained on Proscar and Flomax Hospital Course: Patient is a 71-year-old male patient of Dr. Kristina So who presented to [facility] emergency room after having an episode of syncope. Patient states that he was sitting down at [facility] when he started feeling nauseated he wanted to get up but he lost consciousness, he leaned to the side where his was sitting and never fell to the floor. Patient's states that while he was out he had some shaking, patient was unconscious for about 15 seconds, he was resuscitated EMS were called and patient was brought in to [facility] emergency room. states that when EMS checked his blood pressure at [facility] was very low, however subsequently it was elevated in the emergency room, on arrival patient heart rate was 73 however subsequently it was down in the 40, second EKG was done and it showed a heart rate of 49. Patient was admitted to telemetry floor cardiology consultation was requested. Also due to the shaking history, EEG was ordered and neurology on-call consultation was requested. Patient states that several months ago he was scheduled to have surgery on his nose due to skin cancer however prior to having surgery he had a syncopal episode he was transferred to [facility] and had several tests that did not reveal any significant abnormality he states that he was told he was dehydrated at that time. Patient was admitted to telemetry floor he was seen by Dr. Silva and in cardiology consultation he had episodes of bradycardia metoprolol was discontinued and patient was started on Norvasc 5 mg by mouth daily and Cozaar 25 mg by mouth daily. Patient's 's stated that she noticed some shaking while patient was passing out, he was evaluated by neurologist Dr. Bynum, EEG was done results were not available yet at the time of discharge patient wanted to go home as he was feeling perfectly normal. He was discharged home on 10/17/2016 he will follow-up was Dr. Silva in [facility] within 1-2 weeks he will also follow-up was Dr. Bynum neurologist in 1-2 weeks for further evaluation and treatment. Patient should follow-up with his primary care physician Dr. Kristina So within 1 week Plan - Discharge Summary New Discharge Prescriptions: New amLODIPine [Norvasc] 5 mg PO DAILY tab Losartan [Cozaar] 25 mg PO DAILY tab Continue Finasteride [Proscar] 5 mg PO DAILY Atorvastatin [Lipitor] 20 mg PO DAILY Tamsulosin [Flomax] 0.4 mg PO HS Levothyroxine Sodium [Synthroid] 50 mcg PO DAILY Cholecalciferol [Vitamin D3] 1,000 unit PO DAILY Discontinued Metoprolol Tartrate [Lopressor] 50 mg PO DAILY Discharge Medication List Atorvastatin [Lipitor] 20 mg PO DAILY 10/23/15 [History] Cholecalciferol [Vitamin D3] 1,000 unit PO DAILY 10/23/15 [History] Finasteride [Proscar] 5 mg PO DAILY 10/23/15 [History] Levothyroxine Sodium [Synthroid] 50 mcg PO DAILY 10/23/15 [History] Tamsulosin [Flomax] 0.4 mg PO HS 10/23/15 [History] Losartan [Cozaar] 25 mg PO DAILY tab 10/17/16 [Rx] amLODIPine [Norvasc] 5 mg PO DAILY tab 10/17/16 [Rx] Follow up Appointment(s)/Referral(s): Jose Silva MD [STAFF PHYSICIAN] - 2 Weeks Kristina So DO [Primary Care Provider] - 1-2 days Vinay Bynum MD [STAFF PHYSICIAN] - 1 Week
[2016-10-17 18:31] VITALS: BP 150/98
--- NOTE | 2016-10-18 05:19 | EEG ---
DATE OF SERVICE: 10/17/2016 REASON FOR TESTING: Syncope. DESCRIPTION OF THE PROCEDURE: This EEG was performed using a 21-channel digital electroencephalograph, following international 10-20 system. DESCRIPTION OF THE RECORDING: From the beginning of the tracing, and with the patient's eyes closed, the background rhythm was mostly consisting of 9 Hz alpha frequency in the posterior occipital leads. No obvious asymmetry is seen. Photic stimulation was performed with a minimal driving response seen. No pathological waves were elicited. Hyperventilation was not performed. Rare movement artifacts are seen. The patient remains awake throughout the tracing. No epileptiform discharges were seen. His EKG lead showed a regular rate and rhythm. INTERPRETATION: This awake EEG can be considered within normal limits. There was no asymmetry seen. No epileptiform discharges were noticed. The absence of epileptiform discharges does not rule out the diagnosis of epilepsy, therefore clinical correlation is recommended. MTDD
== END 2016-10-17 19:02 | disposition home or self-care (01) | DRG 312 ==
LOC: EC 10:25 → 6SEL 13:45
PROVIDERS: ADMIT Internal Medicine; ATTEND Internal Medicine
DX: R55 Syncope and collapse (principal); R00.1 Bradycardia, unspecified; I35.1 Nonrheumatic aortic (valve) insufficiency; I10 Essential (primary) hypertension; E78.5 Hyperlipidemia, unspecified; E03.9 Hypothyroidism, unspecified; N40.0 Benign prostatic hyperplasia without lower urinary tract symptoms; R20.2 Paresthesia of skin; R20.0 Anesthesia of skin; Z87.442 Personal history of urinary calculi; Z85.828 Personal history of other malignant neoplasm of skin; Z80.9 Family history of malignant neoplasm, unspecified; Z87.19 Personal history of other diseases of the digestive system; Z87.891 Personal history of nicotine dependence; Z79.899 Other long term (current) drug therapy
CPT/HCPCS: 36415; 70450; 71020; 80048; 80053; 81003; 82550; 82553; 83605; 83735; 84484; 85025; 85027; 85379; 85610; 85730; 93005; 93306; 93880; 95819; 96360; 96361; 99285

== ENCOUNTER 2019-10-28 22:14 | Emergency (ER) | payer MEDICARE ==
[2019-10-28 22:35] VITALS: TEMP 97.9
[2019-10-28] MEDS ORDERED: SODIUM CHLORIDE 0.9% 1,000 ML IV STA ×2 (22:38)
[2019-10-28] MEDS ORDERED: MORPHINE SULFATE 4 MG/ML SYRINGE IVP STA (22:55)
[2019-10-28] MEDS ORDERED: ONDANSETRON 4 MG/2 ML VIAL IVP STA (22:55)
[2019-10-28 23:08] LABS: Appearance,Urine Clear (Clear); Bilirubin,Urine Negative (Negative); Blood,Urine Negative (Negative); Color,Urine Light Yellow; Glucose,Urine (UA) Negative (Negative); Ketones,Urine Negative (Negative); Leukocyte Esterase,Urine Negative (Negative); Nitrite,Urine Negative (Negative); PH, Urine 6.5 (5.0-8.0); Protein,Urine Negative (Negative); Specific Gravity,Urine 1.006 (1.001-1.035); Urobilinogen,Urine <2.0 mg/dL (<2.0)
[2019-10-28 23:09] LABS: Basophils % (A) 1 %; Eosinophils # (A) 0.1 k/uL (0-0.7); Eosinophils % (A) 1 %; HCT 47.7 % (39.0-53.0); HGB 15.3 gm/dL (13.0-17.5); Lymphocytes # (A) 2.6 k/uL (1.0-4.8); Lymphocytes % (A) 28 %; MCH 29.4 pg (25.0-35.0); Mean Platelet Volume 8.8; Monocytes # (A) 0.7 k/uL (0-1.0); Monocytes % (A) 7 %; Neutrophils # (A) 5.6 k/uL (1.3-7.7); Neutrophils % (A) 60 %; Platelet Count 170 k/uL (150-450); RBC 5.19 m/uL (4.30-5.90); RDW 13.5 % (11.5-15.5); WBC 9.3 k/uL (3.8-10.6)
[2019-10-28 23:18] LABS: ALT 31 U/L (4-49); AST 31 U/L (17-59); African American GFR (CKD) >90 (>60 ml/min/1.73 sqM); Albumin 4.1 g/dL (3.5-5.0); Alkaline Phosphatase 81 U/L (38-126); Amylase 61 U/L (30-110); Anion Gap 8 mmol/L; Blood Urea Nitrogen 16 mg/dL (9-20); Calcium 9.3 mg/dL (8.4-10.2); Carbon Dioxide 27 mmol/L (22-30); Chloride 105 mmol/L (98-107); Glucose 94 mg/dL (74-99); Non-African American GFR(CKD) 84 (>60 ml/min/1.73 sqM); Potassium 4.1 mmol/L (3.5-5.1); Sodium 140 mmol/L (137-145); Total Bilirubin 1.3 mg/dL (0.2-1.3); Total Protein 7.2 g/dL (6.3-8.2)
--- NOTE | 2019-10-28 23:49 | CT ---
EXAMINATION TYPE: CT abdomen pelvis w con DATE OF EXAM: 10/28/2019 COMPARISON: 10/23/2015 HISTORY: LLQ pain, hx of diverticulitis CT DLP: 848.40 mGycm Automated exposure control for dose reduction was used. CONTRAST: Performed with IV Contrast, patient injected with 100 mL of Isovue 300. Images were obtained from the diaphragm to the floor the pelvis with IV contrast. Lung bases are clear. There is no pleural effusion. Heart size is normal. Liver spleen stomach pancreas gallbladder appear normal. Bile ducts are not dilated. There is no adrenal mass. Kidneys show satisfactory contrast opacification. There is no hydronephrosi s. Ureters are not dilated. Delayed images show normal renal excretion. Bladder distends smoothly. Pr ostate is enlarged and measures 5.8 cm. There is no inguinal hernia. There is no free fluid in the pe lvis. There is a 3.6 and meter rounded mass with air-fluid level posterior to the mid sigmoid colon. This i s consistent with a chronic peridiverticular abscess or a large diverticulum.. There is no significan t surrounding inflammatory reaction. The mass contains linear 3 densities that measure up to 1.5 cm i n length that could be fecaliths. These appear essentially new compared to old CT scan. There are num erous sigmoid diverticula. There is no evidence of a bowel obstruction. There is no free air. There i s no ascites. There is fat stranding and inflammatory changes around the mid descending colon consistent with colit is or diverticulitis. This is a change compared to old exam. The appendix is posterior and medial and appears normal. The lumbar vertebra have normal alignment. There is narrowing of L4-5 and L5-S1 disc spaces. There is spur formation. There is no compression fracture. Bony pelvis appears intact. IMPRESSION: There is evidence of acute diverticulitis of the mid descending colon that is a change compared to ol d exam. There is extensive colonic diverticulosis. There is large diverticulum or chronic peridiverticular abscess of the posterior mid sigmoid colon th at contains foreign bodies or calcification. These could be fecaliths. This appears unchanged in size compared to old CT scan.
[2019-10-29] MEDS ORDERED: ACET/COD 300 MG/30 MG STARTER PACK 6 TAB BTL PO STA (00:16)
[2019-10-29] MEDS ORDERED: CIPROFLOXACIN HCL 500 MG TAB PO STA (00:16)
[2019-10-29] MEDS ORDERED: metroNIDAZOLE 500 MG TAB PO STA (00:16)
--- NOTE | 2019-10-29 00:17 | ED ---
Abdominal Pain HPI - General Chief Complaint: Abdominal Pain Stated Complaint: Abd Pain Time Seen by Provider: 10/28/19 22:38 Source: patient, RN notes reviewed, old records reviewed Mode of arrival: ambulatory Limitations: no limitations - History of Present Illness Initial Comments: 74-year-old male presents return today for left-sided abdominal pain starting yesterday. Patient said history of diverticulitis. Patient was treated with antibiotics and is only 2 months ago. Patient denies any current fevers or chills. Denies any nausea or vomiting. Patient states that he is scheduled a colonoscopy within the next couple of months. Patient states this pain feels similar to previous diagnosis of diverticulitis. - Related Data Home Medications Medication Instructions Recorded Confirmed Atorvastatin [Lipitor] 20 mg PO DAILY 10/23/15 10/15/16 Cholecalciferol [Vitamin D3 (25 1,000 unit PO DAILY 10/23/15 10/15/16 Mcg = 1000 Iu)] Finasteride [Proscar] 5 mg PO DAILY 10/23/15 10/15/16 Levothyroxine Sodium [Synthroid] 50 mcg PO DAILY 10/23/15 10/15/16 Tamsulosin [Flomax] 0.4 mg PO HS 10/23/15 10/15/16 Previous Rx's Medication Instructions Recorded Losartan [Cozaar] 25 mg PO DAILY tab 10/17/16 amLODIPine [Norvasc] 5 mg PO DAILY tab 10/17/16 Ciprofloxacin HCl [Cipro] 500 mg PO Q12HR #20 tab 10/29/19 metroNIDAZOLE [Flagyl] 500 mg PO TID #30 tab 10/29/19 Allergies Allergy/AdvReac Type Severity Reaction Status Date / Time No Known Allergies Allergy Verified 10/28/19 22:32 Review of Systems ROS Statement: Those systems with pertinent positive or pertinent negative responses have been documented in the HPI. ROS Other: All systems not noted in ROS Statement are negative. Past Medical History Past Medical History: Hypertension Additional Past Medical History / Comment(s): Diverticulitis, skin canncer on nose, kidney stones+ History of Any Multi-Drug Resistant Organisms: None Reported Past Surgical History: Back Surgery, Hernia Repair Additional Past Surgical History / Comment(s): Calvin, Past Anesthesia/Blood Transfusion Reactions: No Reported Reaction Past Psychological History: No Psychological Hx Reported Smoking Status: Former smoker Past Alcohol Use History: None Reported Past Drug Use History: None Reported - Past Family History Son(s) Additional Family Medical History / Comment(s): of cancer at age 31 General Exam - General Exam Comments Initial Comments: Alert and oriented 74-year-old male. No acute distress. General: Well appearing, well nourished, in no distress. Oriented x 3, normal mood and affect . Ambulating without difficulty. Skin: Good turgor, no rash, unusual bruising or prominent lesions Hair: Normal texture and distribution. HEENT: Head: Normocephalic, atraumatic, no visible or palpable masses, depressi ons, or scaring. Eyes: Visual acuity intact, conjunctiva clear, sclera non-icteric, EOM intact, PERRL. Ears: EACs clear, TMs translucent & cone of light visualized. hearing intact. Nose: No external lesions, mucosa non-inflamed, septum and turbinates normal Mouth: Mucous membranes moist, no mucosal lesions. Teeth/Gums: No obvious caries or periodontal disease. No gingival inflammation or significant resorption. Pharynx: Mucosa non-inflamed, no tonsillar hypertrophy or exudate Neck: Supple, without lesions, bruits, or adenopathy, thyroid non-enlarged and non-tender Heart: No cardiomegaly or thrills; regular rate and rhythm, no murmur or gallop Lungs: Clear to auscultation and percussion Abdomen: Bowel sounds normal, LLQ tenderness Back: Spine normal without deformity or tenderness, no CVA tenderness Extremities: No amputations or deformities, cyanosis, edema or varicosities, p eripheral pulses intact Musculoskeletal: Normal gait and station. No misalignment, asymmetry, crepi tation, defects, tenderness, masses, effusions, decreased range of motion, instability, atrophy or abnormal strength or tone in the head, neck, spine, ribs, pelvis or extremities. Neurologic: CN 2-12 normal. Sensation to pain, touch, and proprioception normal. DTRs normal in upper and lower extremities. No pathologic reflexes. Psychiatric: Oriented X3, intact recent and remote memory, judgment and insight, normal mood and affect. Limitations: no limitations Course Vital Signs 10/28/19 10/29/19 22:30 01:08 Temperature 97.9 F 97.9 F Pulse Rate 98 76 Respiratory 18 17 Rate Blood Pressure 161/100 162/96 O2 Sat by Pulse 98 97 Oximetry Medical Decision Making - Medical Decision Making 74 mg as well abdominal pain for the past day. Patient has history of diverticulitis past. Labwork obtained and unremarkable. Did have significant tenderness. This pain is improved after morphine and Zofran. Patient CT was revealed and shows evidence of acute diverticulitis. Patient acute abscess. There is evidence of diverticular pocket which is unchanged from previous computed tomography scan. I discussed these findings with Patient and patient's family and Patient are aware of CT findings. I discussed following up with GI specialist FOR the Patient on antibiotics. - Lab Data Result diagrams: 10/28/19 22:51 10/28/19 22:51 Lab Results 10/28/19 10/28/19 10/28/19 Range/Units 22:51 22:51 22:51 WBC 9.3 (3.8-10.6) k/uL RBC 5.19 (4.30-5.90) m/uL Hgb 15.3 (13.0-17.5) gm/dL Hct 47.7 (39.0-53.0) % MCV 92.0 (80.0-100.0) fL MCH 29.4 (25.0-35.0) pg MCHC 32.0 (31.0-37.0) g/dL RDW 13.5 (11.5-15.5) % Plt Count 170 (150-450) k/uL Neutrophils % 60 % Lymphocytes % 28 % Monocytes % 7 % Eosinophils % 1 % Basophils % 1 % Neutrophils # 5.6 (1.3-7.7) k/uL Lymphocytes # 2.6 (1.0-4.8) k/uL Monocytes # 0.7 (0-1.0) k/uL Eosinophils # 0.1 (0-0.7) k/uL Basophils # 0.0 (0-0.2) k/uL Sodium 140 (137-145) mmol/L Potassium 4.1 (3.5-5.1) mmol/L Chloride 105 (98-107) mmol/L Carbon Dioxide 27 (22-30) mmol/L Anion Gap 8 mmol/L BUN 16 (9-20) mg/dL Creatinine 0.90 (0.66-1.25) mg/dL Est GFR (CKD-EPI)AfAm >90 (>60 ml/min/1.73 sqM) Est GFR (CKD-EPI)NonAf 84 (>60 ml/min/1.73 sqM) Glucose 94 (74-99) mg/dL Calcium 9.3 (8.4-10.2) mg/dL Total Bilirubin 1.3 (0.2-1.3) mg/dL AST 31 (17-59) U/L ALT 31 (4-49) U/L Alkaline Phosphatase 81 (38-126) U/L Total Protein 7.2 (6.3-8.2) g/dL Albumin 4.1 (3.5-5.0) g/dL Amylase 61 (30-110) U/L Lipase 63 (23-300) U/L Urine Color Light Yellow Urine Appearance Clear (Clear) Urine pH 6.5 (5.0-8.0) Ur Specific [place] 1.006 (1.001-1.035) Urine Protein Negative (Negative) Urine Glucose (UA) Negative (Negative) Urine Ketones Negative (Negative) Urine Blood Negative (Negative) Urine Nitrite Negative (Negative) Urine Bilirubin Negative (Negative) Urine Urobilinogen <2.0 (<2.0) mg/dL Ur Leukocyte Esterase Negative (Negative) - Radiology Data Radiology results: report reviewed No evidence of acute diverticulitis of the mid descending colon that is a change compared on exam. There is extensive colonic diverticulosis. There is large diverticulum or chronic. Diverticular abscess of the posterior mid sigmoid colon that contains foreign bodies or calcification. This could be fecaliths. This appears unchanged from old CT. Disposition Clinical Impression: Diverticulitis Disposition: HOME SELF-CARE Condition: Good Instructions (If sedation given, give patient instructions): Diverticulitis Diet (ED) Additional Instructions: Patient advised ever clear liquid diet. Follow-up with the GI specialist for her upcoming colonoscopy. Complete the antibiotics as prescribed. Return to the emergency department if any alarming signs or symptoms occur. Prescriptions: Ciprofloxacin HCl [Cipro] 500 mg PO Q12HR #20 tab metroNIDAZOLE [Flagyl] 500 mg PO TID #30 tab Is patient prescribed a controlled substance at d/c from ED?: No Referrals: Kristina So DO [Primary Care Provider] - 1-2 days Time of Disposition: 00:14
[2019-10-29] MEDS ORDERED: traMADol 50 MG STARTER PACK 3 TAB BTL PO STA (00:54)
[2019-10-29 01:10] VITALS: BP 162/96; PULSE 76; RESP 17
== END 2019-10-29 01:08 | disposition home or self-care (01) ==
LOC: EC 22:14
DX: K57.20 Diverticulitis of large intestine with perforation and abscess without bleeding (principal); Z79.899 Other long term (current) drug therapy; Z79.890 Hormone replacement therapy; Z87.891 Personal history of nicotine dependence; Z87.442 Personal history of urinary calculi; Z85.828 Personal history of other malignant neoplasm of skin
CPT/HCPCS: 36415; 80053; 82150; 83690; 85025; 81003; 74177; 99285; 96374; 96375; 96361 ×2; J2270; J2405; Q9967

== ENCOUNTER 2019-10-31 11:46 | Inpatient (IN) | payer MEDICARE ==
[2019-10-31] MEDS ORDERED: SODIUM CHLORIDE 0.9% 1,000 ML IV STA ×2 (12:01)
[2019-10-31] MEDS ORDERED: ONDANSETRON 4 MG/2 ML VIAL IVP STA (12:16)
[2019-10-31 12:37] LABS: Appearance,Urine Clear (Clear); Bilirubin,Urine Negative (Negative); Blood,Urine Negative (Negative); Color,Urine Yellow; Glucose,Urine (UA) Negative (Negative); Hyaline Casts,Urine 1 /lpf (0-2); Ketones,Urine Negative (Negative); Leukocyte Esterase,Urine Trace (Negative); Mucus,Urine Occasional /hpf; Nitrite,Urine Negative (Negative); PH, Urine 5.5 (5.0-8.0); Protein,Urine Trace (Negative); RBC,Urine 1 /hpf (0-5); Specific Gravity,Urine 1.017 (1.001-1.035); Urobilinogen,Urine <2.0 mg/dL (<2.0); WBC,Urine 1 /hpf (0-5)
[2019-10-31] MEDS ORDERED: PIPERACILLIN-TAZOBACTAM 3.375 GM in SODIUM CHLORIDE 0.9% 100 ML IVPB STA (12:39)
[2019-10-31 12:40] LABS: Albumin 4.5 g/dL (3.5-5.0); Calcium 9.5 mg/dL (8.4-10.2); Potassium 4.2 mmol/L (3.5-5.1); Total Bilirubin 2.2 mg/dL (0.2-1.3); Total Protein 7.7 g/dL (6.3-8.2)
[2019-10-31] MEDS ORDERED: ACETAMINOPHEN TAB 325 MG TAB PO PRN (12:42)
[2019-10-31] MEDS ORDERED: ONDANSETRON 4 MG/2 ML VIAL IVP PRN (12:42)
[2019-10-31] MEDS ORDERED: HYDROcodone/APAP 5-325MG 1 EACH TAB PO PRN (12:42)
[2019-10-31] MEDS ORDERED: NALOXONE 0.4 MG/ML 1 ML VIAL IV PRN (12:42)
--- NOTE | 2019-10-31 12:42 | ED ---
Abdominal Pain HPI - General Chief Complaint: Abdominal Pain Stated Complaint: diverticulitis Time Seen by Provider: 10/31/19 12:01 Source: patient, family, RN notes reviewed Mode of arrival: ambulatory Limitations: no limitations - History of Present Illness Initial Comments: 74-year-old male presents emergency Department from PCPs office chief complaint abdominal pain. Patient seen here Sunday night for acute diverticulitis. Patient was discharged on antibiotics symptoms worsening pain, nausea. Patient denies any similar diarrhea melena or hematochezia. Patient states that he had a fever 102 last night. Patient was sent in for admission. - Related Data Home Medications Medication Instructions Recorded Confirmed Atorvastatin [Lipitor] 20 mg PO DAILY 10/23/15 10/15/16 Cholecalciferol [Vitamin D3 (25 1,000 unit PO DAILY 10/23/15 10/15/16 Mcg = 1000 Iu)] Finasteride [Proscar] 5 mg PO DAILY 10/23/15 10/15/16 Levothyroxine Sodium [Synthroid] 50 mcg PO DAILY 10/23/15 10/15/16 Tamsulosin [Flomax] 0.4 mg PO HS 10/23/15 10/15/16 Previous Rx's Medication Instructions Recorded Losartan [Cozaar] 25 mg PO DAILY tab 10/17/16 amLODIPine [Norvasc] 5 mg PO DAILY tab 10/17/16 Ciprofloxacin HCl [Cipro] 500 mg PO Q12HR #20 tab 10/29/19 metroNIDAZOLE [Flagyl] 500 mg PO TID #30 tab 10/29/19 Allergies Allergy/AdvReac Type Severity Reaction Status Date / Time No Known Allergies Allergy Verified 10/31/19 11:50 Review of Systems ROS Statement: Those systems with pertinent positive or pertinent negative responses have been documented in the HPI. ROS Other: All systems not noted in ROS Statement are negative. Past Medical History Past Medical History: Hypertension Additional Past Medical History / Comment(s): Diverticulitis, skin canncer on nose, kidney stones+ History of Any Multi-Drug Resistant Organisms: None Reported Past Surgical History: Back Surgery, Hernia Repair Additional Past Surgical History / Comment(s): Calvin, Past Anesthesia/Blood Transfusion Reactions: No Reported Reaction Past Psychological History: No Psychological Hx Reported Smoking Status: Former smoker Past Alcohol Use History: None Reported Past Drug Use History: None Reported - Past Family History Son(s) Additional Family Medical History / Comment(s): of cancer at age 31 General Exam Limitations: no limitations General appearance: alert, in no apparent distress Head exam: Present: atraumatic, normocephalic, normal inspection Eye exam: Present: normal appearance, PERRL, EOMI. Absent: scleral icterus, conjunctival injection, periorbital swelling Respiratory exam: Present: normal lung sounds bilaterally. Absent: respiratory distress, wheezes, rales, rhonchi, stridor Cardiovascular Exam: Present: regular rate, normal rhythm, normal heart sounds. Absent: systolic murmur, diastolic murmur, rubs, gallop, clicks GI/Abdominal exam: Present: soft, tenderness (Moderate left lower quadrant), normal bowel sounds. Absent: distended, guarding, rebound, rigid Back exam: Absent: CVA tenderness (R), CVA tenderness (L) Neurological exam: Present: alert, oriented X3 Course Vital Signs 10/31/19 11:47 Temperature 97.7 F Pulse Rate 71 Respiratory 18 Rate Blood Pressure 141/94 O2 Sat by Pulse 98 Oximetry Medical Decision Making - Medical Decision Making Patient had labs, antibiotics or. Patient will be admitted to Dr. So - Lab Data Result diagrams: 10/31/19 12:05 Lab Results 10/31/19 10/31/19 10/31/19 Range/Units 12:05 12:05 12:05 Sodium 137 (137-145) mmol/L Potassium 4.2 (3.5-5.1) mmol/L Chloride 101 (98-107) mmol/L Carbon Dioxide 26 (22-30) mmol/L Anion Gap 10 mmol/L BUN 20 (9-20) mg/dL Creatinine 1.17 (0.66-1.25) mg/dL Est GFR (CKD-EPI)AfAm 71 (>60 ml/min/1.73 sqM) Est GFR (CKD-EPI)NonAf 61 (>60 ml/min/1.73 sqM) Glucose 110 H (74-99) mg/dL Plasma Lactic Acid [place] 1.3 (0.7-2.0) mmol/L Calcium 9.5 (8.4-10.2) mg/dL Total Bilirubin 2.2 H (0.2-1.3) mg/dL AST 44 (17-59) U/L ALT 37 (4-49) U/L Alkaline Phosphatase 98 (38-126) U/L Total Protein 7.7 (6.3-8.2) g/dL Albumin 4.5 (3.5-5.0) g/dL Amylase 49 (30-110) U/L Lipase 53 (23-300) U/L Urine Color Yellow Urine Appearance Clear (Clear) Urine pH 5.5 (5.0-8.0) Ur Specific [place] 1.017 (1.001-1.035) Urine Protein Trace H (Negative) Urine Glucose (UA) Negative (Negative) Urine Ketones Negative (Negative) Urine Blood Negative (Negative) Urine Nitrite Negative (Negative) Urine Bilirubin Negative (Negative) Urine Urobilinogen <2.0 (<2.0) mg/dL Ur Leukocyte Esterase Trace H (Negative) Urine RBC 1 (0-5) /hpf Urine WBC 1 (0-5) /hpf Hyaline Casts 1 (0-2) /lpf Urine Mucus Occasional H (None) /hpf Disposition Clinical Impression: Diverticulitis, Failure of outpatient treatment Disposition: ADMITTED IP TO THIS HOSP Condition: Fair Is patient prescribed a controlled substance at d/c from ED?: No Referrals: Kristina So DO [Primary Care Provider] - 1-2 days Time of Disposition: 12:46
[2019-10-31 12:54] LABS: Basophils % (A) 0 %; Eosinophils % (A) 0 %; HCT 54.4 % (39.0-53.0); HGB 17.7 gm/dL (13.0-17.5); Lymphocytes # (A) 1.6 k/uL (1.0-4.8); Lymphocytes % (A) 15 %; MCH 29.7 pg (25.0-35.0); MCHC 32.5 g/dL (31.0-37.0); MCV 91.4 fL (80.0-100.0); Mean Platelet Volume 8.7; Monocytes # (A) 0.7 k/uL (0-1.0); Monocytes % (A) 6 %; Neutrophils # (A) 8.2 k/uL (1.3-7.7); Neutrophils % (A) 77 %; Platelet Count 123 k/uL (150-450); RBC 5.95 m/uL (4.30-5.90); RDW 13.5 % (11.5-15.5); WBC 10.8 k/uL (3.8-10.6)
--- NOTE | 2019-10-31 14:15 | P.GSCN ---
History of Present Illness Consult date: 10/31/19 History of present illness: CHIEF COMPLAINT: Left lower quadrant abdominal pain HISTORY OF PRESENT ILLNESS: This is a 74-year-old male with a known history of diverticulitis, hypertension, kidney stones and hypothyroidism. Past surgical history is Alejandra fundoplication and hernia repair. His last colonoscopy was about 3 years ago and per patient showed diverticulosis. Patient came into the ER with complaints of left lower quadrant pain, fever, vomiting and diarrhea. Patient reported symptoms started a few days ago. He did come into the ER on 10/29/2019 with similar symptoms and was treated for an acute diverticulitis. He was discharged on Flagyl and Cipro. Patient reported improvement in his pain. However, he went to see his PCP today and they recommended that patient goes to the ER due to the fact that he was having fever, vomiting diarrhea and abdominal pain. Patient does admit to eating cucumbers and tomatoes at home. He reports a fever of 102 at home. He had diverticulitis about 6 weeks ago and was treated with antibiotics by his PCP. He reports a third episode about 3 month ago. Patient had a computed tomography scan of abdomen done on 10/28/2019 the head showed evidence of acute diverticulitis. Patient denies any hematochezia, melena, hematemesis . We have been consulted for surgical management in regards to his diverticulitis. PAST MEDICAL HISTORY: See list. PAST SURGICAL HISTORY: See list. MEDICATIONS: See list. ALLERGIES: See list. SOCIAL HISTORY: No illicit drug use. REVIEW OF SYSTEMS: CONSTITUTIONAL: Denies fever or chills. HEENT: Denies blurred vision, vision changes, or eye pain. Denies hemoptysis CARDIOVASCULAR: Denies chest pain or pressure. RESPIRATORY: No shortness of breath. GASTROINTESTINAL: See HPI for pertinent findings HEMATOLOGIC: Denies bleeding disorders. GENITOURINARY: Denies any blood in urine or increased urinary frequency. SKIN: Denies pruitis. Denies rash. PHYSICAL EXAM: VITAL SIGNS: Reviewed GENERAL: Well-developed in no acute distress. HEENT: No sclera icterus. Extraocular movements grossly intact. Moist buccal mucosa. Head is atraumatic, normocephalic. No nasal drainage. ABDOMEN: Soft. Nondistended left lower quadrant tenderness with palpation NEUROLOGIC: Alert and oriented. Cranial nerves II through XII grossly intact. LABORATORY DATA: WBC 10.8, lactic 1.3 IMAGING: Computed tomography scan abdomen and pelvis from 10/28/2019 radiologist reports evidence of acute diverticulitis of the mid descending colon that is changed compared to old exam. There is extensive colonic diverticulosis. There is a large diverticulum or chronic peridiverticular abscess of the posterior mid sigmoid colon that contains foreign bodies or calcification. These could be fecaliths. This appears unchanged in size compared to old computed tomography scan. ASSESSMENT: 1. Acute diverticulitis of the mid descending colon failed outpatient treatment with antibiotics 2. Prior history of diverticulitis 3. Essential hypertension PLAN: -Continue IV antibiotics Zosyn -Continue IV fluids -Continue clear liquid diet Thank you for this consultation Physician Hand Turner note has been reviewed by physician. Signing provider agrees with the documented findings, assessment, and plan of care. Past Medical History Past Medical History: Hypertension Additional Past Medical History / Comment(s): Diverticulitis, skin canncer on nose, kidney stones+ History of Any Multi-Drug Resistant Organisms: None Reported Past Surgical History: Back Surgery, Hernia Repair Additional Past Surgical History / Comment(s): Calvin, Past Anesthesia/Blood Transfusion Reactions: No Reported Reaction Past Psychological History: No Psychological Hx Reported Smoking Status: Former smoker Past Alcohol Use History: None Reported Past Drug Use History: None Reported - Past Family History Son(s) Additional Family Medical History / Comment(s): of cancer at age 31 Medications and Allergies Home Medications Medication Instructions Recorded Confirmed Type Atorvastatin [Lipitor] 20 mg PO HS 10/23/15 10/31/19 History Levothyroxine Sodium [Synthroid] 50 mcg PO DAILY 10/23/15 10/31/19 History amLODIPine [Norvasc] 5 mg PO DAILY tab 10/17/16 10/31/19 Rx Ciprofloxacin HCl [Cipro] 500 mg PO Q12HR #20 tab 10/29/19 10/31/19 Rx metroNIDAZOLE [Flagyl] 500 mg PO TID #30 tab 10/29/19 10/31/19 Rx Losartan Potassium 50 mg PO HS 10/31/19 10/31/19 History Metoprolol Tartrate [Lopressor] 50 mg PO DAILY 10/31/19 10/31/19 History Allergies Allergy/AdvReac Type Severity Reaction Status Date / Time No Known Allergies Allergy Verified 10/31/19 13:42 Surgical - Exam Vital Signs Temp Pulse Resp BP Pulse Ox 97.7 F 71 18 141/94 98 10/31/19 11:47 10/31/19 11:47 10/31/19 11:47 10/31/19 11:47 10/31/19 11:47 Results - Labs 10/31/19 12:05 10/31/19 12:05 Abnormal Lab Results - Last 24 Hours (Table) 10/31/19 10/31/19 10/31/19 Range/Units 12:05 12:05 12:05 WBC 10.8 H (3.8-10.6) k/uL RBC 5.95 H (4.30-5.90) m/uL Hgb 17.7 H (13.0-17.5) gm/dL Hct 54.4 H (39.0-53.0) % Plt Count 123 L (150-450) k/uL Neutrophils # 8.2 H (1.3-7.7) k/uL Glucose 110 H (74-99) mg/dL Total Bilirubin 2.2 H (0.2-1.3) mg/dL Urine Protein Trace H (Negative) Ur Leukocyte Esterase Trace H (Negative) Urine Mucus Occasional H (None) /hpf Diabetes panel 10/31/19 Range/Units 12:05 Sodium 137 (137-145) mmol/L Potassium 4.2 (3.5-5.1) mmol/L Chloride 101 (98-107) mmol/L Carbon Dioxide 26 (22-30) mmol/L BUN 20 (9-20) mg/dL Creatinine 1.17 (0.66-1.25) mg/dL Glucose 110 H (74-99) mg/dL Calcium 9.5 (8.4-10.2) mg/dL AST 44 (17-59) U/L ALT 37 (4-49) U/L Alkaline Phosphatase 98 (38-126) U/L Total Protein 7.7 (6.3-8.2) g/dL Albumin 4.5 (3.5-5.0) g/dL Calcium panel 10/31/19 Range/Units 12:05 Calcium 9.5 (8.4-10.2) mg/dL Albumin 4.5 (3.5-5.0) g/dL Pituitary panel 10/31/19 Range/Units 12:05 Sodium 137 (137-145) mmol/L Potassium 4.2 (3.5-5.1) mmol/L Chloride 101 (98-107) mmol/L Carbon Dioxide 26 (22-30) mmol/L BUN 20 (9-20) mg/dL Creatinine 1.17 (0.66-1.25) mg/dL Glucose 110 H (74-99) mg/dL Calcium 9.5 (8.4-10.2) mg/dL Adrenal panel 10/31/19 Range/Units 12:05 Sodium 137 (137-145) mmol/L Potassium 4.2 (3.5-5.1) mmol/L Chloride 101 (98-107) mmol/L Carbon Dioxide 26 (22-30) mmol/L BUN 20 (9-20) mg/dL Creatinine 1.17 (0.66-1.25) mg/dL Glucose 110 H (74-99) mg/dL Calcium 9.5 (8.4-10.2) mg/dL Total Bilirubin 2.2 H (0.2-1.3) mg/dL AST 44 (17-59) U/L ALT 37 (4-49) U/L Alkaline Phosphatase 98 (38-126) U/L Total Protein 7.7 (6.3-8.2) g/dL Albumin 4.5 (3.5-5.0) g/dL
[2019-10-31] MEDS: PIPERACILLIN-TAZOBACTAM 3.375 GM in SODIUM CHLORIDE 0.9% 100 ML IVPB SCH (15:15)
--- NOTE | 2019-10-31 21:39 | P.HPIM ---
History of Present Illness This is a pleasant 74 years old male with multiple medical problems, he was admitted under the surface of Dr. So with on-call hospitalist covering. Patient presented to the hospital 2 days ago with abdominal pain and diarrhea, and was provided with antibiotics and then discharged home however over 2 days slightly getting worse and today he has 1 loose bowel movement associated with vomiting and had a fever over 102 His pain is in the left lower quadrant, check lactic copy, moderate to severe. Patient has been diagnosed with diverticulitis about 6 weeks ago and this is the second episode. He denies smoking, alcohol or street drugs. Vital showing no fever, rest of vitals are stable. Patient has mild leukocytosis of 10.8 K. BMP and liver enzymes are not remarkable. Urinalysis is unremarkable. Patient was admitted with Zosyn and IV fluids and surgical consult Review of Systems CONSTITUTIONAL: No fever, no malaise, no fatigue. HEENT: No recent visual problems or hearing problems. Denied any sore throat. CARDIOVASCULAR: No orthopnea, PND, no palpitations, no syncope. PULMONARY: No shortness of breath, no cough, no hemoptysis. GASTROINTESTINAL: No GI bleed. Normoactive bowel sounds. NEUROLOGICAL: No headaches, no weakness, no numbness. HEMATOLOGICAL: Denies any bleeding or petechiae. GENITOURINARY: Denies any burning micturition, frequency, or urgency. MUSCULOSKELETAL/RHEUMATOLOGICAL: Denies any joint pain, swelling, or any muscle pain. ENDOCRINE: Denies any polyuria or polydipsia. Past Medical History Past Medical History: Hypertension Additional Past Medical History / Comment(s): Diverticulitis, skin canncer on nose, kidney stones+ History of Any Multi-Drug Resistant Organisms: None Reported Past Surgical History: Back Surgery, Hernia Repair Additional Past Surgical History / Comment(s): Calvin, Past Anesthesia/Blood Transfusion Reactions: No Reported Reaction Past Psychological History: No Psychological Hx Reported Smoking Status: Former smoker Past Alcohol Use History: None Reported Past Drug Use History: None Reported - Past Family History Son(s) Additional Family Medical History / Comment(s): of cancer at age 31 Medications and Allergies Home Medications Medication Instructions Recorded Confirmed Type Atorvastatin [Lipitor] 20 mg PO HS 10/23/15 10/31/19 History Levothyroxine Sodium [Synthroid] 50 mcg PO DAILY 10/23/15 10/31/19 History amLODIPine [Norvasc] 5 mg PO DAILY tab 10/17/16 10/31/19 Rx Ciprofloxacin HCl [Cipro] 500 mg PO Q12HR #20 tab 10/29/19 10/31/19 Rx metroNIDAZOLE [Flagyl] 500 mg PO TID #30 tab 10/29/19 10/31/19 Rx Losartan Potassium 50 mg PO HS 10/31/19 10/31/19 History Metoprolol Tartrate [Lopressor] 50 mg PO DAILY 10/31/19 10/31/19 History Allergies Allergy/AdvReac Type Severity Reaction Status Date / Time No Known Allergies Allergy Verified 10/31/19 13:42 Physical Exam Vitals: Vital Signs Temp Pulse Pulse Resp BP BP Pulse Ox 10/31/19 13:51 98.0 F 64 17 146/79 99 10/31/19 13:40 97.9 F 61 18 145/86 98 10/31/19 13:18 97.9 F 61 18 145/86 98 10/31/19 11:47 97.7 F 71 18 141/94 98 Intake and Output 10/31/19 10/31/19 10/31/19 06:59 14:59 22:59 Other: Weight 73.028 kg 73.028 kg GENERAL: The patient is alert and oriented x3, not in any acute distress. Well developed, well nourished. HEENT: Pupils are round and equally reacting to light. EOMI. No scleral icterus. No conjunctival pallor. Normocephalic, atraumatic. No pharyngeal erythema. No thyromegaly. CARDIOVASCULAR: S1 and S2 present. No murmurs, rubs, or gallops. PULMONARY: Chest is clear to auscultation, no wheezing or crackles. -ABDOMEN: Soft, LLQ tenderness, no rebound tenderness, nondistended, normoactive bowel sounds. No palpable organomegaly. MUSCULOSKELETAL: No joint swelling or deformity. EXTREMITIES: No cyanosis, clubbing, or pedal edema. NEUROLOGICAL: Gross neurological examination did not reveal any focal deficits. SKIN: No rashes. No petechiae Results CBC & Chem 7: 10/31/19 12:05 10/31/19 12:05 Labs: Abnormal Lab Results - Last 24 Hours (Table) 10/31/19 10/31/19 10/31/19 Range/Units 12:05 12:05 12:05 WBC 10.8 H (3.8-10.6) k/uL RBC 5.95 H (4.30-5.90) m/uL Hgb 17.7 H (13.0-17.5) gm/dL Hct 54.4 H (39.0-53.0) % Plt Count 123 L (150-450) k/uL Neutrophils # 8.2 H (1.3-7.7) k/uL Glucose 110 H (74-99) mg/dL Total Bilirubin 2.2 H (0.2-1.3) mg/dL Urine Protein Trace H (Negative) Ur Leukocyte Esterase Trace H (Negative) Urine Mucus Occasional H (None) /hpf Assessment and Plan Assessment: Acute diverticulitis, failed outpatient management Hypertension Plan: This is a pleasant 74 years old male who presents with recurrent diverticulitis which failed outpatient therapy. Continue with Zosyn. Start the patient and normal saline at 100 mL per hour. Pain management. Surgical consult Labs and medication were reviewed.. Continue same treatment. Continue with symptomatic treatment. Resume home medication. Monitor lytes and vitals. DVT and GI prophylaxis. Further recommendations of the clinical course of the bruna ent DVT prophylaxis: Subcutaneous heparin GI Prophylaxis: Pepcid
[2019-11-01] MEDS: PIPERACILLIN-TAZOBACTAM 3.375 GM in SODIUM CHLORIDE 0.9% 100 ML IVPB SCH ×4 (00:26→23:53)
--- NOTE | 2019-11-01 11:18 | P.PN ---
Progress Note - Text Progress Note Date: 11/01/19 The patient feels slightly better today. He still has completed the left lower quadrant pain. On exam vital signs are stable. Abdomen soft. There is marked tenderness left lower quadrant. Acute diverticulitis. The patient will continue receive IV antibiotics.
[2019-11-02] MEDS: LEVOTHYROXINE 50 MCG TAB PO SCH (05:55)
[2019-11-02 07:20] LABS: Basophils % (A) 1 %; Eosinophils # (A) 0.1 k/uL (0-0.7); Eosinophils % (A) 1 %; HCT 45.8 % (39.0-53.0); Lymphocytes # (A) 1.3 k/uL (1.0-4.8); Lymphocytes % (A) 19 %; MCH 28.9 pg (25.0-35.0); MCHC 31.5 g/dL (31.0-37.0); MCV 91.8 fL (80.0-100.0); Mean Platelet Volume 8.5; Monocytes # (A) 0.4 k/uL (0-1.0); Monocytes % (A) 6 %; Neutrophils # (A) 4.9 k/uL (1.3-7.7); Neutrophils % (A) 71 %; Platelet Count 170 k/uL (150-450); RBC 4.99 m/uL (4.30-5.90); RDW 13.5 % (11.5-15.5); WBC 6.9 k/uL (3.8-10.6)
[2019-11-02 07:34] LABS: Calcium 8.9 mg/dL (8.4-10.2); Potassium 3.7 mmol/L (3.5-5.1)
[2019-11-02 07:37] LABS: HGB 14.4 gm/dL (13.0-17.5)
[2019-11-02] MEDS: amLODIPine 5 MG TAB PO SCH (08:27)
[2019-11-02] MEDS: PIPERACILLIN-TAZOBACTAM 3.375 GM in SODIUM CHLORIDE 0.9% 100 ML IVPB SCH ×3 (08:27→23:11)
--- NOTE | 2019-11-02 09:54 | P.PN ---
Progress Note - Text Progress Note Date: 11/02/19 The patient feels better. His pain is improved. On exam vital signs are stable. Abdomen soft. There is mild left lower quadrant tenderness. Improving diverticulitis. Patient continue receive IV antibiotics.
--- NOTE | 2019-11-02 17:44 | P.PN ---
Subjective Progress Note Date: 11/01/19 Principal diagnosis: Acute Diverticulitis Mr. Ramachandran is a 74-year-old male with a past medical history of skin cancer on the nose, kidney stones, hypertension coming to the hospital with a chief complaint of diarrhea vomiting and fever. Patient was in the hospital couple of days back with abdominal pain and diarrhea he was given antibiotics and discharged home however patient symptoms worsen and so he presented to the emergency department again. The patient is admitted for failed outpatient treatment of diverticulitis. On 11/01/2019 -patient is comfortably lying in bed appears to be no acute distress. Patient states that he still has slight abdominal pain in the left lower quadrant, that is getting better. Patient denied having any nausea or vomiting. He states that he had a bowel movement earlier this afternoon which was nonbloody. Patient denies having any fevers chills or rigors. No chest pain or palpitations. No cough or difficulty in breathing. No dysuria or hematuria. On reviewing the vitals patient's blood pressure is 141 x 84, T-max 98.4, heart rate around 60s, saturating at 97% on room air on reviewing the labs no new labs were drawn from this morning. Active Medications Acetaminophen (Acetaminophen Tab 325 Mg Tab) 650 mg PO Q6HR PRN PRN Reason: Mild Pain or Fever > 100.5 Last Admin: 11/01/19 00:26 Dose: 650 mg Documented by: Hydrocodone Bitart/Acetaminophen (Hydrocodone/Apap 5-325mg 1 Each Tab) 1 each PO Q4HR PRN PRN Reason: Moderate Pain Last Admin: 11/01/19 02:17 Dose: 1 each Documented by: Amlodipine Besylate (Amlodipine 5 Mg Tab) 5 mg PO DAILY [facility] Piperacillin Sod/Tazobactam (Sod 3.375 gm/ Sodium Chloride) 100 mls @ 25 mls/hr IVPB Q8HR [facility] Last Admin: 11/01/19 16:29 Dose: 25 mls/hr Documented by: Levothyroxine Sodium (Levothyroxine 50 Mcg Tab) 50 mcg PO DAILY@0630 [facility] Naloxone HCl (Naloxone 0.4 Mg/Ml 1 Ml Vial) 0.2 mg IV Q2M PRN PRN Reason: Opioid Reversal Ondansetron HCl (Ondansetron 4 Mg/2 Ml Vial) 4 mg IVP Q8HR PRN PRN Reason: Nausea And Vomiting Objective - Vital Signs Vital signs: Vital Signs Temp 98.1 F 11/01/19 19:05 Pulse 62 11/01/19 19:05 Resp 16 11/01/19 19:05 BP 141/84 11/01/19 19:05 Pulse Ox 97 11/01/19 19:05 Intake & Output 11/01/19 11/01/19 11/02/19 06:59 18:59 06:59 Intake Total 500 Balance 500 Intake: Intake, IV Titration 300 Amount Sodium Chloride 0.9% 1, 300 000 ml @ 130 mls/hr IV . Q7H42M STA Rx#:[id number] Oral 200 Other: Voiding Method Toilet # Voids 1 2 1 - Exam GENERAL: The patient is alert and oriented x3, not in any acute distress. Well developed, well nourished. HEENT: Pupils are round and equally reacting to light. EOMI. No scleral icterus. No conjunctival pallor. CARDIOVASCULAR: S1 and S2 present. No murmurs, rubs, or gallops. PULMONARY: Chest is clear to auscultation, no wheezing or crackles. ABDOMEN: Soft, LLQ tenderness, no rebound tenderness, nondistended, normoactive bowel sounds. No palpable organomegaly. MUSCULOSKELETAL: No joint swelling or deformity. EXTREMITIES: No cyanosis, clubbing, or pedal edema. NEUROLOGICAL: Gross neurological examination did not reveal any focal deficits. SKIN: No rashes. No petechiae - Labs CBC & Chem 7: 10/31/19 12:05 10/31/19 12:05 Labs: Microbiology - Last 24 Hours (Table) 10/31/19 12:05 Blood Culture - Preliminary Blood No Growth after 24 hours Assessment and Plan Assessment: ASSESSMENT Acute diverticulitis failed outpatient treatment Hypertension History of skin cancer on the nose History of nephrolithiasis Former smoker PLAN: Patient has been started on Zosyn and he seems to be responding to it. Patient complains of decreased pain in the left lower quadrant, afebrile. Will check CBC and BMP tomorrow morning. Continue with the current medication regimen. Further recommendations to follow depending on the progress of the patient.
--- NOTE | 2019-11-02 18:02 | P.PN ---
Subjective Progress Note Date: 11/02/19 Principal diagnosis: Acute Diverticulitis Mr. Ramachandran is a 74-year-old male with a past medical history of skin cancer on the nose, kidney stones, hypertension coming to the hospital with a chief complaint of diarrhea vomiting and fever. Patient was in the hospital couple of days back with abdominal pain and diarrhea he was given antibiotics and discharged home however patient symptoms worsen and so he presented to the emergency department again. The patient is admitted for failed outpatient treatment of diverticulitis. On 11/01/2019 -patient is comfortably lying in bed appears to be no acute distress. Patient states that he still has slight abdominal pain in the left lower quadrant, that is getting better. Patient denied having any nausea or vomiting. He states that he had a bowel movement earlier this afternoon which was nonbloody. Patient denies having any fevers chills or rigors. No chest pain or palpitations. No cough or difficulty in breathing. No dysuria or hematuria. On reviewing the vitals patient's blood pressure is 141 x 84, T-max 98.4, heart rate around 60s, saturating at 97% on room air on reviewing the labs no new labs were drawn from this morning. On 11/02/2019- patient is lying comfortably in bed appears to be in distress. Patient reports that his left abdominal aortic quadrant pain is improving. Patient has been seen by Dr. Morales today and his diet has been advanced today. Patient denies having any chest pain, palpitations. No cough or difficulty in breathing. No dysuria or hematuria. Patient's vitals and labs have been reviewed Active Medications Generic Name Dose Route Start Last Admin Trade Name Freq PRN Reason Stop Dose Admin Acetaminophen 650 mg 10/31/19 12:42 11/01/19 00:26 Acetaminophen Tab 325 Mg Tab PO 650 mg Q6HR PRN Administration Mild Pain or Fever > 100.5 Hydrocodone Bitart/Acetaminophen 1 each 10/31/19 12:42 11/01/19 02:17 Hydrocodone/Apap 5-325mg 1 Each Tab PO 1 each Q4HR PRN Administration Moderate Pain Amlodipine Besylate 5 mg 11/02/19 09:00 11/02/19 08:27 Amlodipine 5 Mg Tab PO 5 mg DAILY [facility] Administration Piperacillin Sod/Tazobactam 100 mls @ 25 mls/hr 10/31/19 16:00 11/02/19 16:49 Sod 3.375 gm/ Sodium Chloride IVPB 25 mls/hr Q8HR [facility] Administration Levothyroxine Sodium 50 mcg 11/02/19 06:30 11/02/19 05:55 Levothyroxine 50 Mcg Tab PO 50 mcg DAILY@0630 [facility] Administration Naloxone HCl 0.2 mg 10/31/19 12:42 Naloxone 0.4 Mg/Ml 1 Ml Vial IV Q2M PRN Opioid Reversal Ondansetron HCl 4 mg 10/31/19 12:42 Ondansetron 4 Mg/2 Ml Vial IVP Q8HR PRN Nausea And Vomiting . Objective - Vital Signs Vital signs: Vital Signs Temp 98.3 F 11/02/19 15:00 Pulse 92 11/02/19 15:00 Resp 18 11/02/19 15:00 BP 129/87 11/02/19 15:00 Pulse Ox 96 11/02/19 15:00 Intake & Output 11/01/19 11/02/19 11/02/19 18:59 06:59 18:59 Other: Voiding Method Toilet # Voids 2 1 2 - Exam GENERAL: The patient is alert and oriented x3, not in any acute distress. Well developed, well nourished. HEENT: Pupils are round and equally reacting to light. EOMI. No scleral icterus. No conjunctival pallor. CARDIOVASCULAR: S1 and S2 present. No murmurs, rubs, or gallops. PULMONARY: Chest is clear to auscultation, no wheezing or crackles. ABDOMEN: Soft, LLQ tenderness- mild compared to yesterday , no rebound tenderness, nondistended, normoactive bowel sounds. No palpable organomegaly. MUSCULOSKELETAL: No joint swelling or deformity. EXTREMITIES: No cyanosis, clubbing, or pedal edema. NEUROLOGICAL: Gross neurological examination did not reveal any focal deficits. SKIN: No rashes. No petechiae - Labs CBC & Chem 7: 11/02/19 06:55 11/02/19 06:55 Labs: Microbiology - Last 24 Hours (Table) 10/31/19 12:05 Blood Culture - Preliminary Blood No Growth after 48 hours Assessment and Plan Assessment: ASSESSMENT Acute diverticulitis failed outpatient treatment Hypertension History of skin cancer on the nose History of nephrolithiasis Former smoker PLAN: Patient has been started on Zosyn and he seems to be responding to it. Patient complains of decreased pain in the left lower quadrant, afebrile. Continue with the current medication regimen. His diet has been advanced as tolerated. Further recommendations to follow depending on the progress of the patient. Anticipate discharge in the next 24 hours.
[2019-11-03 03:11] VITALS: PULSE 62
[2019-11-03] MEDS: LEVOTHYROXINE 50 MCG TAB PO SCH (05:39)
[2019-11-03 07:52] VITALS: BP 138/86; RESP 18; TEMP 98.2
[2019-11-03] MEDS: PIPERACILLIN-TAZOBACTAM 3.375 GM in SODIUM CHLORIDE 0.9% 100 ML IVPB SCH (08:41)
[2019-11-03] MEDS: amLODIPine 5 MG TAB PO SCH (08:41)
--- NOTE | 2019-11-03 12:09 | P.DS ---
Providers Date of admission: 10/31/19 12:45 Expected date of discharge: 11/10/19 Attending physician: Blayne So MD Consults: 10/31/19 12:43 Consult Physician Urgent Consulting Provider: Refugio Geller Consult Reason/Comments: Diverticulitis, established patient Do you want consulting provider notified?: Yes Primary care physician: Kristina oS Hospital Course: Final Diagnoses: Acute diverticulitis failed outpatient treatment Hypertension History of skin cancer on the nose History of nephrolithiasis Former smoker Hospital course: This a 74-year-old gentleman admitted with acute diverticulitis, failed outpatient treatment. Evaluated by surgery. Maintained on IV Zosyn. Significant clinical improvement. Patient will be discharged home today in stable condition with guarded prognosis, pending final DC recommendations/antibiotics, clearance from surgery. The impression and plan of care has been dictated as directed. : I performed a history and examination of this patient, discussed the same with the dictator. I agree with the dictator's note ,documented as a scribe. Any additional findings or plans will be noted. Patient Condition at Discharge: Stable Plan - Discharge Summary New Discharge Prescriptions: Continue Atorvastatin [Lipitor] 20 mg PO HS Levothyroxine Sodium [Synthroid] 50 mcg PO DAILY amLODIPine [Norvasc] 5 mg PO DAILY tab Ciprofloxacin HCl [Cipro] 500 mg PO Q12HR #20 tab metroNIDAZOLE [Flagyl] 500 mg PO TID #30 tab Losartan Potassium 50 mg PO HS Metoprolol Tartrate [Lopressor] 50 mg PO DAILY Discharge Medication List Atorvastatin [Lipitor] 20 mg PO HS 10/23/15 [History] Levothyroxine Sodium [Synthroid] 50 mcg PO DAILY 10/23/15 [History] amLODIPine [Norvasc] 5 mg PO DAILY tab 10/17/16 [Rx] Ciprofloxacin HCl [Cipro] 500 mg PO Q12HR #20 tab 10/29/19 [Rx] metroNIDAZOLE [Flagyl] 500 mg PO TID #30 tab 10/29/19 [Rx] Losartan Potassium 50 mg PO HS 10/31/19 [History] Metoprolol Tartrate [Lopressor] 50 mg PO DAILY 10/31/19 [History] Follow up Appointment(s)/Referral(s): Blayne So MD [STAFF PHYSICIAN] - 09/18/20 11:45 am (In [place] office) Activity/Diet/Wound Care/Special Instructions: Pending final DC recommendations/antibiotics and clearance from surgery
--- NOTE | 2019-11-03 14:02 | P.PN ---
Subjective Progress Note Date: 11/03/19 CHIEF COMPLAINT: Abdominal pain HISTORY OF PRESENT ILLNESS: Patient presented with left lower quadrant abdominal pain. He is being treated for an acute diverticulitis. His abdominal pain has resolved. He denies any nausea or vomiting. He is tolerating diet. He is having bowel movements. PHYSICAL EXAM: VITAL SIGNS: Reviewed. GENERAL: Well-developed in no acute distress. HEENT: No sclera icterus. Extraocular movements grossly intact. Moist buccal mucosa. Head is atraumatic, normocephalic. ABDOMEN: Soft. Nondistended. Nontender. NEUROLOGIC: Alert and oriented. Cranial nerves II through XII grossly intact. ASSESSMENT: 1. Acute diverticulitis PLAN: -Continue Flagyl and Cipro for 7 more days -Patient is surgically stable for discharge -Patient to follow-up with Dr. Geller in 1 week Physician Warehouse Shipper note has been reviewed by physician. Signing provider agrees with the documented findings, assessment, and plan of care. Objective - Vital Signs Vital signs: Vital Signs Temp 98.2 F 11/03/19 07:00 Pulse 62 11/03/19 07:00 Resp 18 11/03/19 07:00 BP 138/86 11/03/19 07:00 Pulse Ox 97 11/03/19 07:00 Intake & Output 11/02/19 11/03/19 11/03/19 18:59 06:59 18:59 Other: Voiding Method Toilet # Voids 2 2 - Labs CBC & Chem 7: 11/02/19 06:55 11/02/19 06:55 Labs: Microbiology - Last 24 Hours (Table) 10/31/19 12:05 Blood Culture - Preliminary Blood No Growth after 48 hours
== END 2019-11-03 13:18 | disposition home or self-care (01) | DRG 392 ==
LOC: EC 11:46 → 4SSUR 12:45
PROVIDERS: ADMIT Family Medicine; ATTEND Family Medicine
DX: K57.32 Diverticulitis of large intestine without perforation or abscess without bleeding (principal); D72.829 Elevated white blood cell count, unspecified; E03.9 Hypothyroidism, unspecified; I10 Essential (primary) hypertension; Z79.890 Hormone replacement therapy; Z79.899 Other long term (current) drug therapy; Z85.828 Personal history of other malignant neoplasm of skin; Z87.442 Personal history of urinary calculi; Z87.891 Personal history of nicotine dependence; Z98.890 Other specified postprocedural states; Z87.19 Personal history of other diseases of the digestive system; Z80.9 Family history of malignant neoplasm, unspecified
CPT/HCPCS: 36415; 80048; 80053; 81001; 82150; 83605; 83690; 85025; 87040; 96361; 96365; 96375; 99284

== ENCOUNTER 2019-12-02 09:21 | Day surgery (SDC) | payer MEDICARE ==
[2019-11-27 15:05] VITALS: BMI 21.7
[~2019-12-02 09:21] MED LIST: LACTATED RINGERS 1,000 ML IV SCH; LIDOCAINE 1% (10MG/ML) FOR IV START INTRADERMA PRN; MIDAZOLAM 2 MG/2 ML VIAL IV PRN
[2019-12-02 09:36] VITALS: RESP 16; TEMP 97.6
[2019-12-02] MEDS ORDERED: LIDOCAINE 1% INJ 10MG/ML (20 ML MDV) ONE (10:14)
[2019-12-02] MEDS ORDERED: PROPOFOL 10 MG/ML 20 ML VIAL IV ONE (10:14)
--- NOTE | 2019-12-02 10:20 | P.GSHP ---
History of Present Illness H&P Date: 12/02/19 Chief Complaint: change in bowel habits patient here today for colonoscopy. Recently was hospitalized with diverticulitis involving the descending colon. Somewhat longer length of colon was inflamed and colitis was also suspected as a possible etiology. Patient has had some looser stools. No bleeding. His pain is now resolved. Patient with history of known large diverticulum of the sigmoid colon and this was stable on recent CAT scan. No inflammatory changes near the sigmoid colon on recent CAT scan. His last colonoscopy 3 years ago. Patient's prep at that time was somewhat suboptimal. Diverticulosis was again seen. Past Medical History Past Medical History: Hypertension, Thyroid Disorder Additional Past Medical History / Comment(s): Diverticulitis, skin cancer on nose, hx kidney stones History of Any Multi-Drug Resistant Organisms: None Reported Past Surgical History: Back Surgery, Hernia Repair Additional Past Surgical History / Comment(s): inguinal hernia repairs, Calvin fundlaplacation for hiatal hernia, Past Anesthesia/Blood Transfusion Reactions: No Reported Reaction Smoking Status: Former smoker - Past Family History Son(s) Additional Family Medical History / Comment(s): of cancer at age 31 Medications and Allergies Home Medications Medication Instructions Recorded Confirmed Type Atorvastatin [Lipitor] 20 mg PO HS 10/23/15 12/02/19 History Levothyroxine Sodium [Synthroid] 50 mcg PO QAM 10/23/15 12/02/19 History Losartan Potassium 50 mg PO HS 10/31/19 12/02/19 History Metoprolol Tartrate [Lopressor] 50 mg PO QAM 10/31/19 12/02/19 History amLODIPine [Norvasc] 5 mg PO QAM 11/27/19 12/02/19 History Allergies Allergy/AdvReac Type Severity Reaction Status Date / Time No Known Allergies Allergy Verified 12/02/19 09:36 Surgical - Exam Vital Signs Temp Pulse Resp BP Pulse Ox 97.6 F 60 16 154/85 97 12/02/19 09:34 12/02/19 09:34 12/02/19 09:34 12/02/19 09:34 12/02/19 09:34 Physical exam: General: Well-developed, well-nourished HEENT: Normocephalic, sclerae nonicteric Abdomen: Nontender, nondistended Extremities: No edema Neuro: Alert and oriented Assessment and Plan (1) Change in bowel habits Narrative/Plan: Will proceed with colonoscopy at this time Current Visit: Yes Status: Acute Code(s): R19.4 - CHANGE IN BOWEL HABIT SNOMED Code(s): 539591999
--- NOTE | 2019-12-02 10:37 | P.PCN ---
Date of Procedure: 12/02/19 Procedure(s) Performed: PREOPERATIVE DIAGNOSIS: change in bowel habits POSTOPERATIVE DIAGNOSIS: extensive diverticulosis PROCEDURE: Colonoscopy ANESTHESIA: MAC SURGEON: Sundar Lucio M.D. SPECIMENS: none ENDOSCOPIC PROCEDURE: The patient was placed on the endoscopy table in the left decubitus position. The Olympus colonoscope was inserted into the anus and passed under direct visualization to the base of the cecum. The appendiceal orifice was visualized. From that point the scope was slowly withdrawn inspecting all surfaces carefully. There were no neoplastic inflammatory or polypoid lesions throughout the cecum, ascending, transverse, descending, sigmoid and rectum. There was extensive diverticulosis noted throughout the colon. Digital rectal examination was normal. The patient was taken to the recovery room in stable condition per anesthesia guidelines. RECOMMENDATIONS: resume diet. Follow colonoscopy in 5-10 years
[2019-12-02 10:54] VITALS: BP 151/93; PULSE 62
== END 2019-12-02 11:16 | disposition home or self-care (01) ==
LOC: ORWHC2ENDO 09:21
PROVIDERS: ATTEND Surgery
DX: K57.30 Diverticulosis of large intestine without perforation or abscess without bleeding (principal); I10 Essential (primary) hypertension; E78.5 Hyperlipidemia, unspecified; Z79.890 Hormone replacement therapy; E07.9 Disorder of thyroid, unspecified; Z79.899 Other long term (current) drug therapy; Z85.828 Personal history of other malignant neoplasm of skin; Z87.442 Personal history of urinary calculi; Z98.890 Other specified postprocedural states; Z87.891 Personal history of nicotine dependence
CPT/HCPCS: 45378; J2001; J2704

== ENCOUNTER → 2022-09-25 | Outpatient (CLI) | payer MEDICARE ==
--- NOTE | 2022-09-26 11:15 | MR ---
EXAMINATION TYPE: MR Prostate wo/w con DATE OF EXAM: 09/25/2022 8:05 AM COMPARISON: CT abdomen pelvis 10/28/2019, 10/23/2015 CLINICAL INDICATION:Male, 77 years old with history of R97.20 ELEVATED PROSTATE SPECIFIC ANTIGEN [PSA ]; TECHNIQUE: Multi-planar, multi-sequence imaging of the pelvis is performed prior to and following the uncomplicated administration of bolus intravenous gadolinium. CONTRAST: 7.5 Gadavist Interpretive Criteria: PI-RADS v2.1 SERUM PSA: 5.25 on 09/02/2022. 3.3 on 08/29/2021. 3.0 on 10/13/2020. SURGICAL PATHOLOGY: No data available. FINDINGS: Prostatic dimensions: 5.5 x 5.0 x 3.8 cm. Ellipsoid Volume: 54.72 (PSA density=0.10 ng/mL/mL) CENTRAL GLAND (Central and Transition Zones/CZ+TZ): Multiple bilateral, heterogenous appearing hypertrophic stromal nodules, without suspicious lesion. M edian lobe hypertrophy with protrusion into the base of the bladder. (PI-RADS 2) PERIPHERAL ZONE (PZ): Bilateral linear, indistinct wedgelike areas of low ADC, and low T2 signal, No evidence of masslike a bnormality, or localized perfusional hypervascularity, to further suggest a focus of clinically signi ficant prostate cancer. (PI-RADS 2) SEMINAL VESICLES (SV): Incompletely distended bilaterally. Intermediate signal within the seminal vesicles suggestive of per nicious contents.. PERIPROSTATIC TISSUES: Unremarkable. LYMPH NODES: No enlarged pelvic lymph node. REMAINING PELVIS: Bladder wall is within normal limits given distention. No abnormal free or organized intrapelvic fluid collection. No pathologic bowel dilation or mural thickening. Fatty changes to the inguinal canals bilaterally. Scattered colonic diverticula. Similar large diverticulum the mid abdomen as seen on prior CT in 2019 which had a high density mater ial in it on prior. OSSEOUS STRUCTURES: No suspicious osseous abnormality. Suspected high T2 signal lesion within the vertebral body likely r epresenting hemangioma correlating with findings on CT within S2 segment of the sacrum. IMPRESSION: 1. No specific features for high-risk prostate cancer. Maximum PI-RADS score: 2. 2. Moderate BPH, estimated gland volume 54.72 mL. 3. No suspicious osseous lesion. No lymphadenopathy. 4. Persistent finding of a large diverticulum or chronic peridiverticular abscess of the posterior mi d sigmoid colon that contains foreign bodies or calcification. These could be fecaliths. This appears decreased in size compared to old CT scan 2016.
== END | disposition home or self-care (01) ==
LOC: RADMRIMAIN 07:10
PROVIDERS: ATTEND Family Medicine
DX: N40.0 Benign prostatic hyperplasia without lower urinary tract symptoms (principal); K57.30 Diverticulosis of large intestine without perforation or abscess without bleeding; R97.20 Elevated prostate specific antigen [PSA]
CPT/HCPCS: 72197; A9585

== ENCOUNTER → 2023-12-05 | Outpatient (CLI) | payer MEDICARE ==
[2023-12-05 18:54] LABS: Basophils # (A) 0.03 X 10*3/uL (0.00-0.10); Basophils % (A) 0.3 %; Eosinophils # (A) 0.01 X 10*3/uL (0.04-0.35); Eosinophils % (A) 0.1 %; HCT 49.6 % (39.6-50.0); HGB 16.2 g/dL (13.0-17.0); Lymphocytes # (A) 3.79 X 10*3/uL (0.90-5.00); Lymphocytes % (A) 38.2 %; MCH 30.9 pg (27.0-32.0); MCHC 32.7 g/dL (32.0-37.0); MCV 94.5 FL (80.0-97.0); Monocytes # (A) 0.71 X 10*3/uL (0.20-1.00); Monocytes % (A) 7.2 %; NRBC Per 100 WBC 0 X 10*3/uL (0.00-0.01); Neutrophils # (A) 5.34 X 10*3/uL (1.80-7.70); Neutrophils % (A) 53.9 %; Platelet Count 184 X 10*3/uL (140-440); RBC 5.25 X 10*6/uL (4.40-5.60); RDW 13.6 % (11.5-14.5); WBC 9.91 X 10*3/uL (4.50-10.00)
[2023-12-05 21:28] LABS: Erythrocyte Sedimentation Rate 4 mm/Hr (0-20); Gliadin AB IgA, Deaminated Negative (Negative); Gliadin AB IgA, Unit 4.2 U/mL; Gliadin AB IgG, Deaminated Negative (Negative); Gliadin AB IgG, Unit <0.4 U/mL
[2023-12-05 23:55] LABS: C Reactive Protein <0.30 mg/dL (0.00-0.80)
[2023-12-05 23:57] LABS: ALT 43 U/L (10-49); AST 34 U/L (14-35); Albumin 4.7 g/dL (3.8-4.9); Albumin/Globulin Ratio 1.62 Ratio (1.60-3.17); Alkaline Phosphatase 89 U/L (41-126); Blood Urea Nitrogen 15.7 mg/dL (9.0-27.0); Calcium 9.7 mg/dL (8.7-10.3); Chloride 105 mmol/L (96-109); Globulin 2.9 g/dL (1.6-3.3); Glucose 104 mg/dL (70-110); Potassium 4.6 mmol/L (3.5-5.5); Sodium 141 mmol/L (135-145); Total Protein 7.6 g/dL (6.2-8.2)
== END | disposition home or self-care (01) ==
LOC: LABWHC1 13:53
PROVIDERS: ATTEND Nurse Practitioner Family
DX: K52.9 Noninfective gastroenteritis and colitis, unspecified (principal)
CPT/HCPCS: 36415; 80053; 83516; 85025; 85652; 86140